=== PATIENT | male | born 1980 | race African-American/Black ===

== ENCOUNTER 2021-01-24 05:33 | Emergency (ER) | payer OTHER ==
[~2021-01-24] VITALS: Ht 203.2 cm; Wt 136.1 kg
--- NOTE | 2021-01-24 05:47 | NUR ---
PT AMBULATED TO ER REQUESTING FOR INSULIN ADMINISTRATION, PT STATES, " I HAVEN'T BEEN ABLE TO REFILL MY RX". ALSO C/O RECTAL BLEEDING. PT A/O X3, NO SOB OR LABORED BREATHING. AFEBRILE. DENIES CP/PRESSURE. CLEAR SPEECH, COMPLETE SENTENCES.
--- NOTE | 2021-01-24 05:49 | NUR ---
Ayaka OLIVARES AT BEDSIDE, MSE IN PROGRESS.
[2021-01-24] MEDS ORDERED: ONDANSETRON 4 MG/2 ML VIAL IV ONE (06:00)
[2021-01-24] MEDS ORDERED: IV NORMAL SALINE 1000 ML BAG IV ONE (06:00)
[2021-01-24 06:05] LABS: HEMATOCRIT 40.7 % (36.7-47.1); MEAN CORPUSCULAR HEMOGLOBIN 25.4 uug (23.8-33.4); MEAN CORPUSCULAR VOLUME 79.4 fL (73.0-96.2); PLATELET COUNT (AUTO) 223 K/uL (152-348)
[2021-01-24] MEDS ORDERED: ONDANSETRON 4 MG/2 ML VIAL ONE (06:11)
[2021-01-24] MEDS ORDERED: INSU100V28 SUBCUT (06:15)
[2021-01-24] MEDS ORDERED: LISI2.5T2 PO (06:15)
[2021-01-24] MEDS ORDERED: NPH,100V2 SUBCUT (06:15)
[2021-01-24 06:19] LABS: *OCCULT BLOOD STOOL POSITIVE (NEGATIVE)
[2021-01-24 06:27] LABS: CREATININE 1.2 mg/dL (0.6-1.3)
[2021-01-24 06:34] LABS: BILIRUBIN,DIRECT 0.1 mg/dL (0.0-0.2); BILIRUBIN,TOTAL 0.2 mg/dL (0.2-1.0); TOTAL PROTEIN, SERUM 7.8 g/dL (6.4-8.2)
--- NOTE | 2021-01-24 07:09 | NUR ---
GAVE REPORT TO Poppy WHEELER (NIKHIL).
[2021-01-24] MEDS ORDERED: HYDR28.316 RC (08:09)
[2021-01-24 08:15] VITALS: BP 130/58
--- NOTE | 2021-01-24 08:17 | NUR ---
Removed IV intact, site benign, bandaged. Gave pt RX and d/c instructions, pt verbalized understanding.
== END 2021-01-24 08:18 | disposition home or self-care (01) ==
LOC: ER 05:45
DX: E11.65 Type 2 diabetes mellitus with hyperglycemia (principal); K92.1 Melena
CPT/HCPCS: 36415; 80048; 80076; 82009; 82270; 85025; 85610; 96361; 96374; 99284; J2405; A4663; J7030

== ENCOUNTER 2021-02-04 | Emergency (ER) | payer OTHER ==
[~2021-02-04] VITALS: Ht 203.2 cm; Wt 136.1 kg
[~2021-02-04] MED LIST: HYDR28.316 RC; INSU100V28 SUBCUT; LISI2.5T14 PO; NPH,100V2 SUBCUT
[2021-02-04 01:26] LABS: CREATININE 1.1 mg/dL (0.6-1.3); POTASSIUM 3.8 mmol/L (3.5-5.1)
[2021-02-04 01:31] LABS: HEMATOCRIT 39.9 % (36.7-47.1); MEAN CORPUSCULAR HEMOGLOBIN 25.7 uug (23.8-33.4); MEAN CORPUSCULAR VOLUME 79.3 fL (73.0-96.2); PLATELET COUNT (AUTO) 227 K/uL (152-348)
[2021-02-04 01:32] LABS: BILIRUBIN,DIRECT 0.1 mg/dL (0.0-0.2); BILIRUBIN,TOTAL 0.2 mg/dL (0.2-1.0); TOTAL PROTEIN, SERUM 7.1 g/dL (6.4-8.2)
--- NOTE | 2021-02-04 04:00 | NUR ---
Patient sleeping with no distress noted.
[2021-02-04] MEDS ORDERED: INSU100V28 SUBCUT (05:09)
[2021-02-04] MEDS ORDERED: NPH,100V2 SUBCUT (05:09)
--- NOTE | 2021-02-04 05:17 | NUR ---
Patient discharged to home in stable condition. Written and verbal after care instructions given. Patient verbalizes understanding of instructions. Stressed follow up or return to ER for worsening s/s.
[2021-02-04 05:18] VITALS: BP 142/81
[2021-02-05] MEDS ORDERED: HUM100IN SQ (02:24)
[2021-02-05] MEDS ORDERED: NITR100C PO (02:24)
== END 2021-02-04 05:20 | disposition home or self-care (01) ==
LOC: ER
DX: R07.9 Chest pain, unspecified (principal); Z82.49 Family history of ischemic heart disease and other diseases of the circulatory system; R94.31 Abnormal electrocardiogram [ECG] [EKG]; E11.65 Type 2 diabetes mellitus with hyperglycemia; Z79.4 Long term (current) use of insulin; J98.11 Atelectasis; I51.7 Cardiomegaly; Z76.0 Encounter for issue of repeat prescription
CPT/HCPCS: 36415; 70030-TC; 71045; 84443; 85025; 93005; A4663

== ENCOUNTER 2021-02-05 00:40 | Emergency (ER) | payer OTHER ==
[~2021-02-05] VITALS: Ht 203.2 cm; Wt 136.1 kg
[~2021-02-05 00:40] MED LIST changes: -LISI2.5T14 PO; +LISI2.5T2 PO
[2021-02-05] MEDS ORDERED: INSULIN NPH 1,000 UNITS/10 ML VIAL SQ ONE ×3 (01:15→02:00)
[2021-02-05] MEDS ORDERED: IV NORMAL SALINE 1000 ML BAG IV ONE (01:15)
[2021-02-05 01:44] LABS: *BILIRUBIN,URIN NEGATIVE (NEGATIVE); *CLARITY,URINE CLEAR (CLEAR); *COLOR,URINE YELLOW (YELLOW); *KETONES,URINE NEGATIVE (NEGATIVE); *UROBILINOGEN,URINE 0.2 E.U./dl (NORMAL); LEUKOCYTE ESTERASE ,URINE TRACE (NEGATIVE); NITRITE, URINE NEGATIVE (NEGATIVE); PH,URINE 5.5 (5.0-8.0)
[2021-02-05 01:52] LABS: CREATININE 1.2 mg/dL (0.6-1.3)
[2021-02-05 01:57] LABS: ETHANOL < 3 MG/DL (0-0)
[2021-02-05 01:59] LABS: *BLOOD, URINE TRACE (NEGATIVE); MEAN CORPUSCULAR HEMOGLOBIN 25.9 uug (23.8-33.4); MEAN CORPUSCULAR VOLUME 80.7 fL (73.0-96.2); PLATELET COUNT (AUTO) 215 K/uL (152-348); UGLUCOSE 3+ (NEGATIVE)
[2021-02-05 02:04] LABS: *AMPHETAMINE, URINE NEGATIVE (NEGATIVE); *CANNABINOID, URINE POSITIVE (NEGATIVE); *COCCAINE, URINE NEGATIVE (NEGATIVE); *OPIATE, URINE NEGATIVE (NEGATIVE); *PHENCYCLIDINE SCREEN,URINE NEGATIVE (NEGATIVE); BILIRUBIN,DIRECT 0.1 mg/dL (0.0-0.2); BILIRUBIN,TOTAL 0.1 mg/dL (0.2-1.0); TOTAL PROTEIN, SERUM 6.8 g/dL (6.4-8.2)
[2021-02-05 02:09] LABS: RBC,URINE 0-3 /HPF (0-3)
[2021-02-05 02:10] LABS: BACTERIA,URINE FEW /HPF (NONE SEEN); SQUAMOUS EPITHELIAL CELL,UR FEW /HPF (NONE SEEN)
[2021-02-05] MEDS ORDERED: CEFTRIAXONE 2 G in IV DEXTROSE 5% 100 ML IV ONE (02:15)
[2021-02-05] MEDS ORDERED: NITR100C PO (02:24)
[2021-02-05] MEDS ORDERED: HUM100IN SQ (02:24)
[2021-02-05] MEDS ORDERED: CEFTRIAXONE 1 G VIAL ONE ×2 (02:30→02:32)
[2021-02-05] MEDS ORDERED: CEFTRIAXONE /D5W 50ML IVPB **ER PYXIS IV ONE (02:30)
[2021-02-05 03:10] VITALS: BP 158/86
--- NOTE | 2021-02-05 03:10 | NUR ---
IV removed. Catheter intact and site benign. Pressure and 4x4 gauze applied to site. No bleeding noted.
== END 2021-02-05 03:11 | disposition home or self-care (01) ==
LOC: ER 00:43
DX: N39.0 Urinary tract infection, site not specified (principal); E66.01 Morbid (severe) obesity due to excess calories; Z68.33 Body mass index [BMI] 33.0-33.9, adult; F15.20 Other stimulant dependence, uncomplicated; E11.65 Type 2 diabetes mellitus with hyperglycemia; Z79.4 Long term (current) use of insulin; E78.5 Hyperlipidemia, unspecified; F17.290 Nicotine dependence, other tobacco product, uncomplicated; R94.31 Abnormal electrocardiogram [ECG] [EKG]
CPT/HCPCS: 36415; 80048; 80076; 80307; 80320; 81001; 82009; 82962 ×2; 83735; 83880; 84100; 84484; 85025; 87086; 93005; 96361; 96365; 96372; 99284; J0696 ×2; J7060; 70030-TC; A4663; G0480; J1815; J7030

== ENCOUNTER 2021-02-11 03:55 | Emergency (ER) | payer OTHER ==
[~2021-02-11] VITALS: Ht 203.2 cm; Wt 158.8 kg
[~2021-02-11 03:55] MED LIST changes: +HUM100IN SQ; +LISI2.5T14 PO; -LISI2.5T2 PO; +NITR100C PO
--- NOTE | 2021-02-11 04:35 | NUR ---
Patient was MSE by Dr Tim in room 05A.
--- NOTE | 2021-02-11 05:00 | NUR ---
Patient refused the VS to be taken. DR Meeta saenz.
--- NOTE | 2021-02-11 05:14 | NUR ---
Patient discharged to home in stable condition. Written and verbal after care instructions given was refused. Patient refused to sign. Stressed follow up or return to ER for worsening s/s. Patient threatening DR. salazar was called.
== END 2021-02-11 05:20 | disposition home or self-care (01) ==
LOC: ER 03:57
DX: E11.9 Type 2 diabetes mellitus without complications (principal); Z79.4 Long term (current) use of insulin
CPT/HCPCS: A4663

== ENCOUNTER 2021-02-20 02:23 | Emergency (ER) | payer OTHER ==
[~2021-02-20] VITALS: Ht 203.2 cm; Wt 158.8 kg
--- NOTE | 2021-02-20 02:51 | NUR ---
Patient was traiged, but after being traiged patient left ER stating "I don't want to be seen by the doctor anymore." Patient was not seen by ERMD.
== END 2021-02-20 03:01 | disposition left against medical advice (07) ==
LOC: ER 02:26
DX: Z53.21 Procedure and treatment not carried out due to patient leaving prior to being seen by health care provider (principal)

== ENCOUNTER 2021-09-17 23:28 | Emergency (ER) | payer OTHER ==
[~2021-09-17] VITALS: Ht 203.2 cm; Wt 181.4 kg
--- NOTE | 2021-09-18 00:10 | NUR ---
Patient ambulated to ER with c/o high blood sugar. Pt reports blood sugar of 600.
[2021-09-18 00:43] LABS: MEAN CORPUSCULAR HEMOGLOBIN 25.1 uug (23.8-33.4); MEAN CORPUSCULAR VOLUME 78.6 fL (73.0-96.2); PLATELET COUNT (AUTO) 202 K/uL (152-348)
[2021-09-18 00:53] LABS: BILIRUBIN,DIRECT 0.1 mg/dL (0.0-0.2); BILIRUBIN,TOTAL 0.4 mg/dL (0.2-1.0); CREATININE 1.1 mg/dL (0.6-1.3); TOTAL PROTEIN, SERUM 6.9 g/dL (6.4-8.2)
[2021-09-18 00:57] LABS: *BILIRUBIN,URIN NEGATIVE (NEGATIVE); *BLOOD, URINE NEGATIVE (NEGATIVE); *CLARITY,URINE CLEAR (CLEAR); *COLOR,URINE YELLOW (YELLOW); *KETONES,URINE NEGATIVE (NEGATIVE); *UROBILINOGEN,URINE 0.2 E.U./dl (NORMAL); LEUKOCYTE ESTERASE ,URINE NEGATIVE (NEGATIVE); NITRITE, URINE NEGATIVE (NEGATIVE); PH,URINE 5.5 (5.0-8.0); UGLUCOSE 3+ (NEGATIVE)
[2021-09-18] MEDS ORDERED: IV NS 1000 ML 1,000 ML IV ONE ×3 (01:15→02:45)
[2021-09-18] MEDS ORDERED: INSULIN REGULAR, HUMAN 300 UNIT/3 ML VIAL IV ONE (01:15)
[2021-09-18] MEDS ORDERED: INSULIN NPH 1,000 UNITS/10 ML VIAL SQ ONE (01:22)
[2021-09-18] MEDS ORDERED: INSULIN REGULAR, HUMAN 300 UNIT/3 ML VIAL ONE (01:26)
--- NOTE | 2021-09-18 02:26 | NUR ---
Dr. Mcdonald on bedside
--- NOTE | 2021-09-18 03:30 | NUR ---
Pt sleeping, arouse to verbal and tactil stimuli. In no apparent distress.
--- NOTE | 2021-09-18 04:33 | NUR ---
Patient discharged to home in stable condition. Written and verbal after care instructions given. Patient verbalizes understanding of instructions. Stressed follow up or return to ER for worsening s/s. Patient ambulated from the ER with steady gait. All belongings with patient.
[2021-09-18 04:34] VITALS: BP 133/73
[2021-09-19] LABS: ABG BASE EXCESS 0.2 mmol/L; ABG HCO3 25.4 mmol/L; ABG PCO2 43.4 mmHg (35.0-45.0); ABG PH 7.386 (7.350-7.450); ABG PO2 64.1 mmHg (75.0-100.0); ABG SITE LEFT RADIAL; ABG TOTAL HEMOGLOBIN 13.8 G/dL (13.5-18.0); COHb 1.4 % (0.5-1.5); MetHb 0.3 % (0.0-1.5); O2Hb 91.8 % (94.0-97.0); VENT MODE ROOM AIR
== END 2021-09-18 04:34 | disposition home or self-care (01) ==
LOC: ER 23:37
DX: E11.65 Type 2 diabetes mellitus with hyperglycemia (principal); E66.01 Morbid (severe) obesity due to excess calories; Z68.41 Body mass index [BMI] 40.0-44.9, adult; Z79.4 Long term (current) use of insulin; F17.210 Nicotine dependence, cigarettes, uncomplicated
CPT/HCPCS: 36415; 36600 ×2; 80048; 80076; 81003; 82009; 82962 ×2; 85025; 93005; 96374; 99285; 99406; J1815; J7040 ×2

== ENCOUNTER 2021-09-19 23:50 | Emergency (ER) | payer SELFPAY ==
[~2021-09-19] VITALS: Ht 203.2 cm; Wt 181.4 kg
[2021-09-20 00:41] LABS: *BILIRUBIN,URIN NEGATIVE (NEGATIVE); *BLOOD, URINE NEGATIVE (NEGATIVE); *CLARITY,URINE CLEAR (CLEAR); *COLOR,URINE YELLOW (YELLOW); *KETONES,URINE NEGATIVE (NEGATIVE); *UROBILINOGEN,URINE 0.2 E.U./dl (NORMAL); LEUKOCYTE ESTERASE ,URINE NEGATIVE (NEGATIVE); NITRITE, URINE NEGATIVE (NEGATIVE); UGLUCOSE 3+ (NEGATIVE)
[2021-09-20] MEDS ORDERED: INSULIN REGULAR, HUMAN 300 UNIT/3 ML VIAL ONE (00:51)
[2021-09-20] MEDS ORDERED: INSULIN REGULAR, HUMAN 300 UNIT/3 ML VIAL IV ONE (01:00)
[2021-09-20 01:57] VITALS: BP 145/88
[2021-09-20] MEDS ORDERED: IV NS 1000 ML 1,000 ML IV ONE (02:00)
== END 2021-09-20 01:59 | disposition home or self-care (01) ==
LOC: ER 23:50
DX: E11.65 Type 2 diabetes mellitus with hyperglycemia (principal); Z79.4 Long term (current) use of insulin; Z79.899 Other long term (current) drug therapy; F17.210 Nicotine dependence, cigarettes, uncomplicated
CPT/HCPCS: J1815; J7040

== ENCOUNTER 2021-09-23 03:43 | Emergency (ER) | payer SELFPAY ==
[~2021-09-23] VITALS: Ht 203.2 cm; Wt 181.4 kg
[2021-09-23] MEDS ORDERED: INSULIN REGULAR, HUMAN 300 UNIT/3 ML VIAL IV ONE (05:00)
[2021-09-23] MEDS ORDERED: IV NS 1000 ML 1,000 ML IV ONE (05:00)
[2021-09-23] MEDS ORDERED: INSULIN REGULAR, HUMAN 300 UNIT/3 ML VIAL ONE (05:23)
--- NOTE | 2021-09-23 05:30 | NUR ---
insulin was given ivp per orders co sign was Gonzalez CHAVES.
[2021-09-23 05:48] LABS: CREATININE 0.9 mg/dL (0.6-1.3); POTASSIUM 3.8 mmol/L (3.5-5.1)
--- NOTE | 2021-09-23 07:20 | NUR ---
Pt eloped, pt stated he has been feeling much better and asked to be discharged several times and can not wait any longer. Pt ambulatory with steady gait and denies any medical complaints at this time, VSS.
[2021-09-23 07:24] LABS: *BILIRUBIN,URIN NEGATIVE (NEGATIVE); *BLOOD, URINE NEGATIVE (NEGATIVE); *CLARITY,URINE CLEAR (CLEAR); *COLOR,URINE YELLOW (YELLOW); *KETONES,URINE NEGATIVE (NEGATIVE); *UROBILINOGEN,URINE 0.2 E.U./dl (NORMAL); LEUKOCYTE ESTERASE ,URINE NEGATIVE (NEGATIVE); NITRITE, URINE NEGATIVE (NEGATIVE); PH,URINE 5.5 (5.0-8.0); UGLUCOSE 2+ (NEGATIVE)
== END 2021-09-23 07:38 | disposition left against medical advice (07) ==
LOC: ER 03:46
DX: E11.65 Type 2 diabetes mellitus with hyperglycemia (principal); Z79.4 Long term (current) use of insulin; F17.200 Nicotine dependence, unspecified, uncomplicated; R03.0 Elevated blood-pressure reading, without diagnosis of hypertension; Z53.20 Procedure and treatment not carried out because of patient's decision for unspecified reasons
CPT/HCPCS: 36415; 80048; 81003; 82962; 96374; 99284; J1815; J7040; A4663

== ENCOUNTER 2021-09-25 00:43 | Emergency (ER) | payer SELFPAY ==
[~2021-09-25] VITALS: Ht 203.2 cm; Wt 181.4 kg
--- NOTE | 2021-09-25 00:50 | NUR ---
Patient walked into ER c/o hyperglycemia 400 [employer]
--- NOTE | 2021-09-25 00:55 | NUR ---
Dr Prado in room for ROSE
[2021-09-25 01:29] LABS: HEMATOCRIT 41.5 % (36.7-47.1); MEAN CORPUSCULAR HEMOGLOBIN 25.4 uug (23.8-33.4); MEAN CORPUSCULAR VOLUME 78.9 fL (73.0-96.2); PLATELET COUNT (AUTO) 201 K/uL (152-348)
[2021-09-25 01:40] LABS: BILIRUBIN,DIRECT 0.1 mg/dL (0.0-0.2); BILIRUBIN,TOTAL 0.4 mg/dL (0.2-1.0); CREATININE 1.2 mg/dL (0.6-1.3); POTASSIUM 3.9 mmol/L (3.5-5.1); TOTAL PROTEIN, SERUM 7.1 g/dL (6.4-8.2)
[2021-09-25] MEDS ORDERED: IV NORMAL SALINE 1000 ML BAG IV ONE ×2 (03:00→04:00)
[2021-09-25] MEDS ORDERED: INSULIN REGULAR, HUMAN 300 UNIT/3 ML VIAL ONE (03:51)
[2021-09-25] MEDS ORDERED: INSULIN REGULAR, HUMAN 300 UNIT/3 ML VIAL IV ONE (04:00)
[2021-09-25 06:00] VITALS: BP 136/62
--- NOTE | 2021-09-25 06:12 | NUR ---
Patient discharged to home in stable condition. Written and verbal after care instructions given. Patient verbalizes understanding of instructions. Stressed follow up or return to ER for worsening s/s. Patient is A/Ox4, no CP, no SOB, no distress noted.
== END 2021-09-25 06:13 | disposition home or self-care (01) ==
LOC: ER 00:46
DX: E11.65 Type 2 diabetes mellitus with hyperglycemia (principal); Z79.4 Long term (current) use of insulin; R94.31 Abnormal electrocardiogram [ECG] [EKG]
CPT/HCPCS: 36415; 71045; 80048; 80076; 82009; 82962; 85025; 93005; 96361; 96374; 99285; J1815; J7040 ×2; A4663

== ENCOUNTER 2021-09-26 02:00 | Emergency (ER) | payer SELFPAY ==
[~2021-09-26] VITALS: Ht 203.2 cm; Wt 181.4 kg
--- NOTE | 2021-09-26 03:12 | NUR ---
Dr ravi at bedside, MSE in progress.
[2021-09-26 04:34] LABS: HEMATOCRIT 40.5 % (36.7-47.1); MEAN CORPUSCULAR HEMOGLOBIN 25.4 uug (23.8-33.4); MEAN CORPUSCULAR VOLUME 78.7 fL (73.0-96.2); PLATELET COUNT (AUTO) 199 K/uL (152-348)
[2021-09-26 05:28] LABS: CREATININE 1.1 mg/dL (0.6-1.3); POTASSIUM 3.9 mmol/L (3.5-5.1)
--- NOTE | 2021-09-26 06:39 | NUR ---
Patient given written and verbal discharge instructions. Patient verbalizes understanding of instructions. Patient is ambulatory with steady gait. Refuses offer of skilled nursing placement. Patient given list of available shelters in surrounding area.
[2021-09-26 06:40] VITALS: BP 131/70
== END 2021-09-26 06:42 | disposition home or self-care (01) ==
LOC: ER 02:07
DX: E11.65 Type 2 diabetes mellitus with hyperglycemia (principal); T38.3X6A Underdosing of insulin and oral hypoglycemic [antidiabetic] drugs, initial encounter; Z91.128 Patient's intentional underdosing of medication regimen for other reason; Z79.899 Other long term (current) drug therapy; Y92.89 Other specified places as the place of occurrence of the external cause
CPT/HCPCS: 36415; 83735; 85025; A4663

== ENCOUNTER 2021-09-29 02:14 | Emergency (ER) | payer SELFPAY ==
[~2021-09-29] VITALS: Ht 203.2 cm; Wt 181.4 kg
--- NOTE | 2021-09-29 02:20 | NUR ---
pt states he is here for high blood sugar.
--- NOTE | 2021-09-29 03:07 | NUR ---
pt sugar by [employer] is 326. I asked the pt what his blood sugar was before he came here he states "I do not know."
--- NOTE | 2021-09-29 03:20 | NUR ---
Dr. Tim in room speaking with the pt.
[2021-09-29 03:58] VITALS: BP 133/70
== END 2021-09-29 03:59 | disposition home or self-care (01) ==
LOC: ER 02:17
DX: E11.65 Type 2 diabetes mellitus with hyperglycemia (principal); Z79.4 Long term (current) use of insulin
CPT/HCPCS: A4663

== ENCOUNTER 2021-10-04 02:46 | Emergency (ER) | payer MEDICAID ==
[~2021-10-04] VITALS: Ht 203.2 cm; Wt 181.4 kg
--- NOTE | 2021-10-04 03:50 | NUR ---
Patient arrived at the Er with c/o of high blood sugar.
--- NOTE | 2021-10-04 03:53 | NUR ---
Dr. Reddy on bedside for MSE.
[2021-10-04 04:58] LABS: CARBON DIOXIDE 26 mmol/L (21-32); CHLORIDE 101 mmol/L (98-107); CREATININE 1.1 mg/dL (0.6-1.3); POTASSIUM 3.9 mmol/L (3.5-5.1); UREA NITROGEN, BLOOD 12 mg/dL (7-18)
[2021-10-04 04:59] LABS: GLUCOSE 405 mg/dL (74-106)
[2021-10-04] MEDS ORDERED: INSULIN REGULAR, HUMAN 300 UNIT/3 ML VIAL ONE (05:12)
[2021-10-04] MEDS ORDERED: HUM10VIA3 SQ (05:15)
[2021-10-04] MEDS ORDERED: INSULIN REGULAR, HUMAN 300 UNIT/3 ML VIAL SQ ONE (05:15)
--- NOTE | 2021-10-04 05:40 | NUR ---
Patient discharged to home in stable condition. Written and verbal after care instructions given. Patient verbalizes understanding of instructions. Stressed follow up or return to ER for worsening s/s. Patient ambulated fr the ER with steady gait. All belongings with patient.
[2021-10-04 05:45] VITALS: BP 139/79
== END 2021-10-04 05:45 | disposition home or self-care (01) ==
LOC: ER 02:46
DX: E11.65 Type 2 diabetes mellitus with hyperglycemia (principal); Z79.4 Long term (current) use of insulin; Z59.00 Homelessness unspecified
CPT/HCPCS: 36415; 80048; 82009; 82962; 96372; 99283; J1815; A4663

== ENCOUNTER 2021-10-07 00:26 | Emergency (ER) | payer SELFPAY ==
[~2021-10-07] VITALS: Ht 203.2 cm; Wt 181.4 kg
[~2021-10-07 00:26] MED LIST changes: +HUM10VIA3 SQ
--- NOTE | 2021-10-07 01:05 | NUR ---
After being triaged, patient was placed back in waiting room due to no beds available in the ER and hallway full of patient.
--- NOTE | 2021-10-07 02:00 | NUR ---
Patient sleeping on a chair in the waiting room with no distress noted.
--- NOTE | 2021-10-07 06:00 | NUR ---
Patient eloped from facility. ER physician notified.
== END 2021-10-07 07:08 | disposition left against medical advice (07) ==
LOC: ER 07:06
DX: Z53.21 Procedure and treatment not carried out due to patient leaving prior to being seen by health care provider (principal)

== ENCOUNTER 2021-10-08 22:40 | Emergency (ER) | payer SELFPAY ==
[~2021-10-08] VITALS: Ht 203.2 cm; Wt 181.4 kg
--- NOTE | 2021-10-09 06:00 | NUR ---
Patient left without being seen by ERMD.
[2021-10-10] MEDS ORDERED: HUM10VIA3 SQ (04:16)
== END 2021-10-09 06:00 | disposition left against medical advice (07) ==
LOC: ER 22:41
DX: Z00.00 Encounter for general adult medical examination without abnormal findings (principal); Z53.21 Procedure and treatment not carried out due to patient leaving prior to being seen by health care provider

== ENCOUNTER 2021-10-10 00:13 | Emergency (ER) | payer MEDICAID ==
[~2021-10-10] VITALS: Ht 203.2 cm; Wt 181.4 kg
--- NOTE | 2021-10-10 02:20 | NUR ---
Patient walked into ER c/o hyperglycemia. Patient is A/Ox4, not in distress
[2021-10-10 03:02] LABS: HEMATOCRIT 40.9 % (36.7-47.1); MEAN CORPUSCULAR HEMOGLOBIN 25.1 uug (23.8-33.4); MEAN CORPUSCULAR VOLUME 79.4 fL (73.0-96.2); PLATELET COUNT (AUTO) 185 K/uL (152-348)
[2021-10-10 03:11] LABS: *BILIRUBIN,URIN NEGATIVE (NEGATIVE); *BLOOD, URINE NEGATIVE (NEGATIVE); *CLARITY,URINE CLEAR (CLEAR); *COLOR,URINE YELLOW (YELLOW); *KETONES,URINE NEGATIVE (NEGATIVE); *UROBILINOGEN,URINE 0.2 E.U./dl (NORMAL); LEUKOCYTE ESTERASE ,URINE NEGATIVE (NEGATIVE); NITRITE, URINE NEGATIVE (NEGATIVE); PH,URINE 5.5 (5.0-8.0); UGLUCOSE 3+ (NEGATIVE)
[2021-10-10 03:21] LABS: CARBON DIOXIDE 27 mmol/L (21-32); CHLORIDE 101 mmol/L (98-107); POTASSIUM 3.9 mmol/L (3.5-5.1); UREA NITROGEN, BLOOD 14 mg/dL (7-18)
[2021-10-10 03:23] LABS: GLUCOSE 413 mg/dL (74-106)
[2021-10-10] MEDS ORDERED: HUM10VIA3 SQ (04:16)
[2021-10-10] MEDS ORDERED: POTASSIUM CHLORIDE 10 MEQ TAB.PRT.SR ONE (04:24)
[2021-10-10] MEDS ORDERED: INSULIN REGULAR, HUMAN 300 UNIT/3 ML VIAL ONE (04:25)
[2021-10-10] MEDS ORDERED: INSULIN REGULAR, HUMAN 300 UNIT/3 ML VIAL SQ ONE (04:30)
[2021-10-10] MEDS ORDERED: POTASSIUM CHLORIDE 20 MEQ TAB.PRT.SR PO ONE (04:30)
--- NOTE | 2021-10-10 04:48 | NUR ---
Patient discharged to home in stable condition. Written and verbal after care instructions given. Patient verbalizes understanding of instructions. Stressed follow up or return to ER for worsening s/s. Patient is a/ox4, not in distress, able to walk with steady gait
[2021-10-10 04:49] VITALS: BP 128/69
== END 2021-10-10 04:50 | disposition home or self-care (01) ==
LOC: ER 00:15
DX: E11.65 Type 2 diabetes mellitus with hyperglycemia (principal); Z91.14 Patient's other noncompliance with medication regimen; F17.210 Nicotine dependence, cigarettes, uncomplicated; Z91.11 Patient's noncompliance with dietary regimen; Z76.0 Encounter for issue of repeat prescription
CPT/HCPCS: 36415; 80048; 81003; 82009; 82962; 85025; 96372; 99283; 99406; J1815; A4663

== ENCOUNTER 2021-10-10 23:25 | Emergency (ER) | payer MEDICAID ==
[~2021-10-10] VITALS: Ht 203.2 cm; Wt 181.4 kg
--- NOTE | 2021-10-10 23:50 | NUR ---
Dr ravi at bedside, MSE in progress.
--- NOTE | 2021-10-11 00:38 | NUR ---
Patient given written and verbal discharge instructions. Patient verbalizes understanding of instructions. Patient is ambulatory with steady gait. Refuses offer of long term placement. Patient given list of available shelters in surrounding area.
[2021-10-11 00:39] VITALS: BP 133/88
== END 2021-10-11 00:40 | disposition home or self-care (01) ==
LOC: ER 23:25
DX: E11.65 Type 2 diabetes mellitus with hyperglycemia (principal); F17.200 Nicotine dependence, unspecified, uncomplicated; Z79.4 Long term (current) use of insulin
CPT/HCPCS: A4663

== ENCOUNTER 2021-10-15 22:49 | Emergency (ER) | payer MEDICAID ==
[~2021-10-15] VITALS: Ht 203.2 cm; Wt 181.4 kg
[2021-10-16] MEDS ORDERED: IV NS 1000 ML 1,000 ML IV ONE (02:30)
[2021-10-16 03:16] LABS: *BILIRUBIN,URIN NEGATIVE (NEGATIVE); *BLOOD, URINE NEGATIVE (NEGATIVE); *CLARITY,URINE CLEAR (CLEAR); *COLOR,URINE YELLOW (YELLOW); *KETONES,URINE NEGATIVE (NEGATIVE); *UROBILINOGEN,URINE 0.2 E.U./dl (NORMAL); LEUKOCYTE ESTERASE ,URINE NEGATIVE (NEGATIVE); NITRITE, URINE NEGATIVE (NEGATIVE); UGLUCOSE 2+ (NEGATIVE)
[2021-10-16 03:25] LABS: CREATININE 1.2 mg/dL (0.6-1.3); POTASSIUM 4.1 mmol/L (3.5-5.1)
[2021-10-16] MEDS ORDERED: INSULIN REGULAR, HUMAN 300 UNIT/3 ML VIAL IV ONE (03:30)
--- NOTE | 2021-10-16 03:30 | NUR ---
Patient walked into ER c/o "hyperglycemia"
[2021-10-16] MEDS ORDERED: INSULIN REGULAR, HUMAN 300 UNIT/3 ML VIAL ONE (03:36)
--- NOTE | 2021-10-16 06:44 | NUR ---
Patient discharged to home in stable condition. Written and verbal after care instructions given. Patient verbalizes understanding of instructions. Stressed follow up or return to ER for worsening s/s. Patient is a/ox4, not in distress
[2021-10-16 06:59] VITALS: BP 138/77
== END 2021-10-16 06:59 | disposition home or self-care (01) ==
LOC: ER 22:50
DX: E11.65 Type 2 diabetes mellitus with hyperglycemia (principal); Z79.4 Long term (current) use of insulin; F17.210 Nicotine dependence, cigarettes, uncomplicated; Z91.14 Patient's other noncompliance with medication regimen
CPT/HCPCS: 36415; 80048; 81003; 82962; 96361; 96374; 99284; 99406; J1815; J7040; A4663

== ENCOUNTER 2021-10-19 23:56 | Emergency (ER) | payer MEDICAID ==
[~2021-10-19] VITALS: Ht 203.2 cm; Wt 181.4 kg
--- NOTE | 2021-10-20 00:05 | NUR ---
Dr. Calderon at bedside for MSE.
--- NOTE | 2021-10-20 00:40 | NUR ---
Patient discharged to home in stable condition. Written and verbal after care instructions given. Patient verbalizes understanding of instructions. Stressed follow up or return to ER for worsening s/s. Patient out of ER with steady gait, no acute signs of distress, VSS, all belongings taken.
[2021-10-20 00:41] VITALS: BP 134/78
== END 2021-10-20 00:41 | disposition home or self-care (01) ==
LOC: ER 23:58
DX: E11.65 Type 2 diabetes mellitus with hyperglycemia (principal); Z79.4 Long term (current) use of insulin; F17.200 Nicotine dependence, unspecified, uncomplicated
CPT/HCPCS: A4663

== ENCOUNTER 2021-10-26 05:02 | Emergency (ER) | payer MEDICAID ==
[~2021-10-26] VITALS: Ht 203.2 cm; Wt 181.4 kg
--- NOTE | 2021-10-26 05:07 | NUR ---
Dr. Bustamante at bedside for MSE.
[2021-10-26 05:55] LABS: CREATININE 1.1 mg/dL (0.6-1.3); POTASSIUM 3.9 mmol/L (3.5-5.1)
[2021-10-26 06:08] VITALS: BP 145/66
== END 2021-10-26 06:08 | disposition home or self-care (01) ==
LOC: ER 05:04
DX: E11.65 Type 2 diabetes mellitus with hyperglycemia (principal); Z79.4 Long term (current) use of insulin; Z59.00 Homelessness unspecified
CPT/HCPCS: 36415; A4663

== ENCOUNTER 2021-10-28 01:10 | Emergency (ER) | payer SELFPAY ==
[~2021-10-28] VITALS: Ht 203.2 cm; Wt 181.4 kg
--- NOTE | 2021-10-28 06:16 | NUR ---
Patient left without bring seen by ERMD.
== END 2021-10-28 06:18 | disposition left against medical advice (07) ==
LOC: ER 01:11
DX: Z53.21 Procedure and treatment not carried out due to patient leaving prior to being seen by health care provider (principal)

== ENCOUNTER 2021-11-01 23:49 | Emergency (ER) | payer OTHER ==
[~2021-11-01] VITALS: Ht 203.2 cm; Wt 181.4 kg
--- NOTE | 2021-11-02 00:18 | NUR ---
pt in room 3, pt states his blood sugar is high, he did not check it. I checked his blood sugar accu check it is [address] Tim.
[2021-11-02 00:34] LABS: HEMATOCRIT 40.3 % (36.7-47.1); MEAN CORPUSCULAR HEMOGLOBIN 25.5 uug (23.8-33.4); PLATELET COUNT (AUTO) 210 K/uL (152-348)
[2021-11-02 00:35] LABS: CREATININE 0.9 mg/dL (0.6-1.3); POTASSIUM 3.7 mmol/L (3.5-5.1)
--- NOTE | 2021-11-02 00:54 | NUR ---
security called to assist pt with discharge as pt is stalling to leave the hospital. He is cleaning his shoes and looking around the room not wanting to leave.
[2021-11-02 00:55] VITALS: BP 125/71
== END 2021-11-02 00:55 | disposition home or self-care (01) ==
LOC: ER 11-02 00:08
DX: E11.65 Type 2 diabetes mellitus with hyperglycemia (principal); Z79.4 Long term (current) use of insulin; Z91.14 Patient's other noncompliance with medication regimen; Z91.11 Patient's noncompliance with dietary regimen
CPT/HCPCS: 36415; 85025; A4663

== ENCOUNTER 2021-11-05 01:51 | Emergency (ER) | payer OTHER ==
[~2021-11-05] VITALS: Ht 203.2 cm; Wt 181.4 kg
--- NOTE | 2021-11-05 02:24 | NUR ---
pt in room 4a states he has high blood sugar. accu check was checked by Jeromy TEJEDA it was 368 dr. Tim made aware.
--- NOTE | 2021-11-05 02:32 | NUR ---
Patient discharged to home in stable condition. Written and verbal after care instructions given. Patient verbalizes understanding of instructions. Stressed follow up or return to ER for worsening s/s. pt refused to sign d/c instructions. pt is trying to use the hospital chemical wipes to clean his shoes. I asked him to stop not to use our cleaning wipes. I called security to escort the pt out of the er.
[2021-11-05 02:38] VITALS: BP 125/75
== END 2021-11-05 02:39 | disposition home or self-care (01) ==
LOC: ER 01:55
DX: E11.9 Type 2 diabetes mellitus without complications (principal); F17.200 Nicotine dependence, unspecified, uncomplicated
CPT/HCPCS: A4663

== ENCOUNTER 2021-11-06 00:13 | Emergency (ER) | payer OTHER ==
[~2021-11-06] VITALS: Ht 203.2 cm; Wt 181.4 kg
--- NOTE | 2021-11-06 02:00 | NUR ---
Patient given written and verbal discharge instructions. Patient verbalizes understanding of instructions. Patient is ambulatory with steady gait.
[2021-11-06 04:31] VITALS: BP 105/78
== END 2021-11-06 04:31 | disposition home or self-care (01) ==
LOC: ER 00:15
DX: E11.65 Type 2 diabetes mellitus with hyperglycemia (principal); Z79.4 Long term (current) use of insulin; Z91.19 Patient's noncompliance with other medical treatment and regimen; E66.01 Morbid (severe) obesity due to excess calories; Z68.41 Body mass index [BMI] 40.0-44.9, adult
CPT/HCPCS: A4663

== ENCOUNTER 2021-11-10 04:52 | Emergency (ER) | payer OTHER ==
[~2021-11-10] VITALS: Ht 203.2 cm; Wt 181.4 kg
--- NOTE | 2021-11-10 07:34 | NUR ---
PT LEFT WITHOUT INSTRUCTIONS - HAS BEEN REPORTED TO COME HERE OFTEN FOR NIGHT INTERMEDIATE AND LEAVES THE NEXT DAY. SOCIAL WORK INTERVENTION RENDERED IN THE PAST; CURRENTLY, PT IS NOT INTERESTED.
[2021-11-10 07:37] VITALS: BP 115/80
== END 2021-11-10 07:41 | disposition home or self-care (01) ==
LOC: ER 04:54
DX: E11.65 Type 2 diabetes mellitus with hyperglycemia (principal); Z79.4 Long term (current) use of insulin; Z59.00 Homelessness unspecified; F17.200 Nicotine dependence, unspecified, uncomplicated
CPT/HCPCS: A4663

== ENCOUNTER 2021-11-11 05:00 | Emergency (ER) | payer OTHER ==
[~2021-11-11] VITALS: Ht 203.2 cm; Wt 181.4 kg
--- NOTE | 2021-11-11 05:50 | NUR ---
After being triaged, patient left stating "I ok now, I don't want to be seen anymore."
== END 2021-11-11 05:52 | disposition left against medical advice (07) ==
LOC: ER 05:02
DX: Z53.21 Procedure and treatment not carried out due to patient leaving prior to being seen by health care provider (principal)

== ENCOUNTER 2021-11-13 01:25 | Emergency (ER) | payer OTHER ==
[~2021-11-13] VITALS: Ht 203.2 cm; Wt 181.4 kg
[2021-11-13 02:35] VITALS: BP 132/72
--- NOTE | 2021-11-13 02:35 | NUR ---
Patient discharged to home in stable condition. Written and verbal after care instructions given. Patient verbalizes understanding of instructions. Stressed follow up or return to ER for worsening s/s. pt ambulated with steady gait. denies pain. no SOB. no chest pain. AOx4
== END 2021-11-13 02:36 | disposition home or self-care (01) ==
LOC: ER 01:27
DX: E11.9 Type 2 diabetes mellitus without complications (principal); Z91.11 Patient's noncompliance with dietary regimen; Z79.4 Long term (current) use of insulin; E66.01 Morbid (severe) obesity due to excess calories; Z68.41 Body mass index [BMI] 40.0-44.9, adult
CPT/HCPCS: A4663

== ENCOUNTER 2021-11-16 22:56 | Emergency (ER) | payer OTHER ==
[~2021-11-16] VITALS: Ht 203.2 cm; Wt 181.4 kg
--- NOTE | 2021-11-16 23:20 | NUR ---
Dr. Beckett at bedside for MSE.
--- NOTE | 2021-11-17 06:14 | NUR ---
Patient given written and verbal discharge instructions. Patient verbalizes understanding of instructions. Patient is ambulatory with steady gait. Refuses offer of senior living placement. Patient given list of available shelters in surrounding area. Pt out of ER with steady gait, no acute signs of distress, VSS, all belongings taken, refuses all other services at this time.
[2021-11-17 06:16] VITALS: BP 140/72
== END 2021-11-17 06:16 | disposition home or self-care (01) ==
LOC: ER 22:56
DX: E11.65 Type 2 diabetes mellitus with hyperglycemia (principal); Z79.4 Long term (current) use of insulin; Z59.00 Homelessness unspecified
CPT/HCPCS: A4663

== ENCOUNTER 2022-03-20 22:52 | Emergency (ER) | payer OTHER ==
[~2022-03-20] VITALS: Ht 203.2 cm; Wt 181.4 kg
[2022-03-20] MEDS ORDERED: INSULIN REGULAR, HUMAN 300 UNIT/3 ML VIAL SQ ONE (23:30)
--- NOTE | 2022-03-20 23:30 | NUR ---
Seen and examined by Dr. Reddy, pt blood sugar noted 521
[2022-03-20] MEDS ORDERED: INSULIN REGULAR, HUMAN 300 UNIT/3 ML VIAL ONE (23:35)
[2022-03-20 23:44] LABS: HEMATOCRIT 37.7 % (36.7-47.1); MEAN CORPUSCULAR HEMOGLOBIN 25.5 uug (23.8-33.4); MEAN CORPUSCULAR VOLUME 81.3 fL (73.0-96.2); PLATELET COUNT (AUTO) 226 K/uL (152-348)
[2022-03-21] LABS: CARBON DIOXIDE 26 mmol/L (21-32); CHLORIDE 101 mmol/L (98-107); CREATININE 1.3 mg/dL (0.6-1.3); POTASSIUM 4.1 mmol/L (3.5-5.1); UREA NITROGEN, BLOOD 16 mg/dL (7-18)
[2022-03-21 00:08] LABS: GLUCOSE 525 mg/dL (74-106)
[2022-03-21] MEDS ORDERED: INSULIN REGULAR, HUMAN 300 UNIT/3 ML VIAL IV ONE (01:30)
[2022-03-21] MEDS ORDERED: INSULIN REGULAR, HUMAN 300 UNIT/3 ML VIAL SQ ONE ×2 (02:00→02:45)
--- NOTE | 2022-03-21 02:31 | NUR ---
Pt. in bed asleep at this time
--- NOTE | 2022-03-21 02:34 | NUR ---
blood sugar checked 414 noted, informed Dr. Reddy.
[2022-03-21 03:27] VITALS: BP 130/80
--- NOTE | 2022-03-21 03:31 | NUR ---
pt. denies being homeless
[2022-03-22] MEDS ORDERED: METF-441 PO (23:25)
== END 2022-03-21 03:27 | disposition home or self-care (01) ==
LOC: ER 22:52
DX: E11.65 Type 2 diabetes mellitus with hyperglycemia (principal); Z79.4 Long term (current) use of insulin; Z59.00 Homelessness unspecified; F17.210 Nicotine dependence, cigarettes, uncomplicated; R03.0 Elevated blood-pressure reading, without diagnosis of hypertension
CPT/HCPCS: 99284; 99406; 80048; 82009; 82962 ×5; 85025; 36415; 96372 ×2; 96374; J1815; A4663

== ENCOUNTER 2022-03-22 22:25 | Emergency (ER) | payer OTHER ==
[~2022-03-22] VITALS: Ht 208.3 cm; Wt 181.4 kg
[2022-03-22] MEDS ORDERED: METFORMIN HCL 850 MG TABLET PO ONE (23:15)
[2022-03-22] MEDS ORDERED: METFORMIN HCL 850 MG TABLET ONE (23:18)
[2022-03-22] MEDS ORDERED: METF-441 PO (23:25)
--- NOTE | 2022-03-22 23:31 | NUR ---
Patient given written and verbal discharge instructions. Patient verbalizes understanding of instructions. Patient is ambulatory with steady gait. Refuses offer of nursing home placement. Patient given list of available shelters in surrounding area.
[2022-03-22 23:32] VITALS: BP 129/53
== END 2022-03-22 23:32 | disposition home or self-care (01) ==
LOC: ER 22:28
DX: E11.65 Type 2 diabetes mellitus with hyperglycemia (principal); Z79.4 Long term (current) use of insulin; Z79.84 Long term (current) use of oral hypoglycemic drugs; E66.01 Morbid (severe) obesity due to excess calories; Z68.41 Body mass index [BMI] 40.0-44.9, adult; Z59.00 Homelessness unspecified; Z91.110 Patient's noncompliance with dietary regimen due to financial hardship
CPT/HCPCS: A4663

== ENCOUNTER 2022-03-25 22:58 | Emergency (ER) | payer OTHER ==
[~2022-03-25] VITALS: Ht 208.3 cm; Wt 181.4 kg
[~2022-03-25 22:58] MED LIST changes: +METF-441 PO
[2022-03-26 01:05] LABS: CARBON DIOXIDE 29 mmol/L (21-32); CHLORIDE 102 mmol/L (98-107); CREATININE 1.1 mg/dL (0.6-1.3); POTASSIUM 4.1 mmol/L (3.5-5.1); UREA NITROGEN, BLOOD 13 mg/dL (7-18)
[2022-03-26 01:10] LABS: HEMATOCRIT 40.7 % (36.7-47.1); MEAN CORPUSCULAR HEMOGLOBIN 26.5 uug (23.8-33.4); MEAN CORPUSCULAR VOLUME 80.7 fL (73.0-96.2); PLATELET COUNT (AUTO) 220 K/uL (152-348)
[2022-03-26 01:13] LABS: GLUCOSE 347 mg/dL (74-106)
[2022-03-26] MEDS ORDERED: INSULIN REGULAR, HUMAN 300 UNIT/3 ML VIAL SQ ONE ×2 (01:30→01:45)
[2022-03-26] MEDS ORDERED: INSULIN NPH 1,000 UNITS/10 ML VIAL SQ ONE (01:36)
[2022-03-26] MEDS ORDERED: INSULIN REGULAR, HUMAN 300 UNIT/3 ML VIAL ONE (01:40)
[2022-03-26 03:44] VITALS: BP 128/74
== END 2022-03-26 03:44 | disposition home or self-care (01) ==
LOC: ER 22:58
DX: E10.65 Type 1 diabetes mellitus with hyperglycemia (principal); Z79.4 Long term (current) use of insulin; Z79.84 Long term (current) use of oral hypoglycemic drugs; F17.210 Nicotine dependence, cigarettes, uncomplicated; Z59.00 Homelessness unspecified
CPT/HCPCS: 99283; 80048; 82009; 82962 ×2; 85025; 36415; 96372; J1815

== ENCOUNTER 2022-03-26 18:48 | Emergency (ER) | payer OTHER ==
[~2022-03-26] VITALS: Ht 208.3 cm; Wt 181.4 kg
--- NOTE | 2022-03-27 04:26 | NUR ---
Pt. seeing and being examined by Dr. Tim.
[2022-03-27 04:37] VITALS: BP 122/80
== END 2022-03-27 04:45 | disposition home or self-care (01) ==
LOC: ER 18:52
DX: E11.65 Type 2 diabetes mellitus with hyperglycemia (principal); F17.200 Nicotine dependence, unspecified, uncomplicated; Z79.4 Long term (current) use of insulin; Z79.84 Long term (current) use of oral hypoglycemic drugs; Z91.119 Patient's noncompliance with dietary regimen due to unspecified reason
CPT/HCPCS: A4663

== ENCOUNTER 2022-03-28 21:09 | Emergency (ER) | payer OTHER ==
--- NOTE | 2022-03-29 03:30 | NUR ---
Pt not in waiting room.
== END 2022-03-29 05:17 | disposition left against medical advice (07) ==
LOC: ER 21:09
DX: Z53.21 Procedure and treatment not carried out due to patient leaving prior to being seen by health care provider (principal)

== ENCOUNTER 2022-03-29 23:05 | Emergency (ER) | payer OTHER ==
[~2022-03-29] VITALS: Ht 203.2 cm; Wt 181.4 kg
[2022-03-29] MEDS ORDERED: IV NS 1000 ML 1,000 ML IV ONE ×2 (23:45)
[2022-03-30 00:36] LABS: HEMATOCRIT 38.8 % (36.7-47.1); MEAN CORPUSCULAR HEMOGLOBIN 26.1 uug (23.8-33.4); MEAN CORPUSCULAR VOLUME 81.5 fL (73.0-96.2); PLATELET COUNT (AUTO) 191 K/uL (152-348)
[2022-03-30 00:51] LABS: CREATININE 1.2 mg/dL (0.6-1.3); MAGNESIUM 2.1 mg/dL (1.8-2.4); PHOSPHOROUS 4.3 mg/dL (2.5-4.9)
[2022-03-30 02:02] VITALS: BP 145/67
== END 2022-03-30 02:39 | disposition home or self-care (01) ==
LOC: ER 23:11
DX: E11.65 Type 2 diabetes mellitus with hyperglycemia (principal); Z79.4 Long term (current) use of insulin; Z79.84 Long term (current) use of oral hypoglycemic drugs; Z59.00 Homelessness unspecified; Z91.119 Patient's noncompliance with dietary regimen due to unspecified reason; Z91.14 Patient's other noncompliance with medication regimen
CPT/HCPCS: 99284; 82962; 85025; 36415 ×2; 80048; 83735; 84100; J7040 ×2

== ENCOUNTER 2022-04-01 22:44 | Emergency (ER) | payer OTHER ==
[~2022-04-01] VITALS: Ht 208.3 cm; Wt 181.4 kg
== END 2022-04-02 01:14 | disposition home or self-care (01) ==
LOC: ER 22:46
DX: E11.65 Type 2 diabetes mellitus with hyperglycemia (principal); Z79.4 Long term (current) use of insulin; Z79.84 Long term (current) use of oral hypoglycemic drugs; Z59.00 Homelessness unspecified; Z91.119 Patient's noncompliance with dietary regimen due to unspecified reason; Z91.14 Patient's other noncompliance with medication regimen
CPT/HCPCS: A4663

== ENCOUNTER 2022-04-04 00:05 | Emergency (ER) | payer OTHER ==
[~2022-04-04] VITALS: Ht 203.2 cm; Wt 181.4 kg
--- NOTE | 2022-04-04 00:47 | NUR ---
PT. EVALUATED. NO C/O PAIN/DISCOMFORT. CONTROLS PROJECT ENGINEER IN TO DRAW ORDERED LABS. ACCU CHECK AT 466MG/DL MD AWARE. WILL MONITOR.
[2022-04-04 00:58] LABS: HEMATOCRIT 39.9 % (36.7-47.1); MEAN CORPUSCULAR HEMOGLOBIN 26.5 uug (23.8-33.4); MEAN CORPUSCULAR VOLUME 81.3 fL (73.0-96.2); PLATELET COUNT (AUTO) 219 K/uL (152-348)
[2022-04-04 01:00] LABS: CARBON DIOXIDE 26 mmol/L (21-32); CHLORIDE 97 mmol/L (98-107); CREATININE 1.4 mg/dL (0.6-1.3); POTASSIUM 3.8 mmol/L (3.5-5.1); UREA NITROGEN, BLOOD 14 mg/dL (7-18)
[2022-04-04 01:02] LABS: GLUCOSE 494 mg/dL (74-106)
[2022-04-04] MEDS ORDERED: INSULIN REGULAR, HUMAN 300 UNIT/3 ML VIAL ONE (01:23)
[2022-04-04] MEDS ORDERED: INSULIN REGULAR, HUMAN 300 UNIT/3 ML VIAL SQ ONE (01:30)
--- NOTE | 2022-04-04 01:40 | NUR ---
Pt. given 20 units insulin as ordered by MD. Attempts to find out pt. hx as far as hyperglycemic maintenance futile. Pt. states he is traveling and has no insulin here in [place]. Says he cant afford to pay for insulineven if MD prescribes. Pt. very groggy and answers questions very slowly. No order to re check glucose level post insulin.
[2022-04-04 02:21] VITALS: BP 140/85
== END 2022-04-04 02:22 | disposition home or self-care (01) ==
LOC: ER 00:05
DX: E11.65 Type 2 diabetes mellitus with hyperglycemia (principal); Z79.4 Long term (current) use of insulin; F17.210 Nicotine dependence, cigarettes, uncomplicated; Z59.02 Unsheltered homelessness
CPT/HCPCS: 99283; 99406; 80048; 82009; 82962; 85025; 36415; 96372; J1815; A4663

== ENCOUNTER 2022-04-05 23:20 | Emergency (ER) | payer OTHER ==
[~2022-04-05] VITALS: Ht 208.3 cm; Wt 181.4 kg
--- NOTE | 2022-04-06 05:14 | NUR ---
Patient eloped from facility. ER physician notified.
== END 2022-04-06 05:15 | disposition left against medical advice (07) ==
LOC: ER 23:29
DX: E11.65 Type 2 diabetes mellitus with hyperglycemia (principal); Z53.20 Procedure and treatment not carried out because of patient's decision for unspecified reasons; Z59.00 Homelessness unspecified
CPT/HCPCS: A4663

== ENCOUNTER 2022-04-06 21:14 | Emergency (ER) | payer OTHER ==
[~2022-04-06] VITALS: Ht 208.3 cm; Wt 181.4 kg
[2022-04-07] MEDS ORDERED: INSULIN REGULAR, HUMAN 300 UNIT/3 ML VIAL SQ ONE (01:45)
[2022-04-07] MEDS ORDERED: INSULIN REGULAR, HUMAN 300 UNIT/3 ML VIAL ONE (01:49)
[2022-04-07 02:10] LABS: CARBON DIOXIDE 28 mmol/L (21-32); CHLORIDE 97 mmol/L (98-107); CREATININE 1.1 mg/dL (0.6-1.3); POTASSIUM 3.9 mmol/L (3.5-5.1); UREA NITROGEN, BLOOD 16 mg/dL (7-18)
[2022-04-07 02:20] LABS: GLUCOSE 405 mg/dL (74-106)
[2022-04-07] MEDS ORDERED: HUM INSULIN NPH/REG INSULIN HM 70/30 1000 UNITS/10 ML VIAL SQ ONE (02:48)
[2022-04-07 02:57] VITALS: BP 145/84
== END 2022-04-07 03:01 | disposition home or self-care (01) ==
LOC: ER 21:15
DX: E11.65 Type 2 diabetes mellitus with hyperglycemia (principal); Z79.4 Long term (current) use of insulin; F17.210 Nicotine dependence, cigarettes, uncomplicated; Z59.02 Unsheltered homelessness; Z79.84 Long term (current) use of oral hypoglycemic drugs
CPT/HCPCS: 99283; 80048; 82009; 82962; 36415; 96372; J1815 ×2

== ENCOUNTER 2022-04-07 21:18 | Emergency (ER) | payer OTHER ==
[~2022-04-07] VITALS: Ht 208.3 cm; Wt 181.4 kg
[2022-04-07] MEDS ORDERED: IV NS 1000 ML 1,000 ML IV ONE (23:00)
[2022-04-07] MEDS ORDERED: MAGNESIUM SULFATE/D5W 200 ML ONE (23:11)
[2022-04-07 23:17] LABS: HEMATOCRIT 39.1 % (36.7-47.1); MEAN CORPUSCULAR VOLUME 80.9 fL (73.0-96.2); PLATELET COUNT (AUTO) 197 K/uL (152-348)
[2022-04-07] MEDS: MAGNESIUM SULFATE/D5W 100 ML IV SCH (23:18)
[2022-04-07 23:29] LABS: BILIRUBIN,DIRECT 0.1 mg/dL (0.0-0.2); BILIRUBIN,TOTAL 0.3 mg/dL (0.2-1.0); CREATININE 1.4 mg/dL (0.6-1.3); POTASSIUM 3.6 mmol/L (3.5-5.1); TOTAL PROTEIN, SERUM 6.8 g/dL (6.4-8.2)
[2022-04-08] MEDS ORDERED: INSULIN REGULAR, HUMAN 300 UNIT/3 ML VIAL IV ONE
[2022-04-08] MEDS: MAGNESIUM SULFATE/D5W 100 ML IV SCH (00:10)
[2022-04-08] MEDS ORDERED: INSULIN REGULAR, HUMAN 300 UNIT/3 ML VIAL ONE (00:49)
[2022-04-08 01:45] LABS: *BILIRUBIN,URIN NEGATIVE (NEGATIVE); *BLOOD, URINE NEGATIVE (NEGATIVE); *CLARITY,URINE CLEAR (CLEAR); *COLOR,URINE LIGHT YELLOW (YELLOW); *KETONES,URINE NEGATIVE (NEGATIVE); *UROBILINOGEN,URINE 0.2 E.U./dl (NORMAL); LEUKOCYTE ESTERASE ,URINE NEGATIVE (NEGATIVE); NITRITE, URINE NEGATIVE (NEGATIVE); PH,URINE 5.5 (5.0-8.0)
[2022-04-08 02:05] LABS: UGLUCOSE 3+ (NEGATIVE)
[2022-04-08 02:48] LABS: RBC,URINE 0-3 /HPF (0-3); WBC,URINE NONE SEEN /HPF (0-3)
[2022-04-08 02:49] LABS: BACTERIA,URINE NONE SEEN /HPF (NONE SEEN); SQUAMOUS EPITHELIAL CELL,UR FEW /HPF (NONE SEEN)
--- NOTE | 2022-04-08 05:50 | NUR ---
IV removed. Catheter intact and site benign. Pressure and 4x4 gauze applied to site. No bleeding noted.
--- NOTE | 2022-04-08 06:07 | NUR ---
Patient discharged to home in stable condition. Written and verbal after care instructions given. Patient verbalizes understanding of instructions. Stressed follow up or return to ER for worsening s/s. Patient is a/ox4, NAD noted. Patient is able to walk with steady gait
[2022-04-08 06:12] VITALS: BP 145/68
== END 2022-04-08 06:13 | disposition home or self-care (01) ==
LOC: ER 21:18
DX: E11.65 Type 2 diabetes mellitus with hyperglycemia (principal); Z79.4 Long term (current) use of insulin; F17.210 Nicotine dependence, cigarettes, uncomplicated; Z59.02 Unsheltered homelessness
CPT/HCPCS: 99284; 96365; 99406; 80076; 80048; 82009; 82550; 85025; 36415; 96366; 96375; 81001; 82962; J3475; J1815; J7040; A4663

== ENCOUNTER 2022-04-10 20:32 | Emergency (ER) | payer OTHER ==
[~2022-04-10] VITALS: Ht 208.3 cm; Wt 181.4 kg
--- NOTE | 2022-04-10 20:53 | NUR ---
After being triaged, patient was placed in hallway due to no beds avialable in the ER.
[2022-04-10 21:15] LABS: CARBON DIOXIDE 31 mmol/L (21-32); CHLORIDE 98 mmol/L (98-107); CREATININE 1.3 mg/dL (0.6-1.3); POTASSIUM 3.7 mmol/L (3.5-5.1); UREA NITROGEN, BLOOD 15 mg/dL (7-18)
[2022-04-10 21:22] LABS: GLUCOSE 519 mg/dL (74-106)
[2022-04-10] MEDS ORDERED: INSULIN REGULAR, HUMAN 300 UNIT/3 ML VIAL ONE (21:28)
[2022-04-10] MEDS ORDERED: INSULIN REGULAR, HUMAN 300 UNIT/3 ML VIAL SQ ONE (21:30)
[2022-04-10 21:34] VITALS: BP 145/87
== END 2022-04-10 21:34 | disposition home or self-care (01) ==
LOC: ER 20:35
DX: E11.65 Type 2 diabetes mellitus with hyperglycemia (principal); Z79.4 Long term (current) use of insulin; Z59.00 Homelessness unspecified; F17.210 Nicotine dependence, cigarettes, uncomplicated
CPT/HCPCS: 99283; 99406; 80048; 82009; 36415; 96372; J1815; A4663

== ENCOUNTER 2022-04-13 22:14 | Emergency (ER) | payer OTHER ==
[~2022-04-13] VITALS: Ht 208.3 cm; Wt 181.4 kg
[2022-04-14 01:31] LABS: HEMATOCRIT 41.2 % (36.7-47.1); MEAN CORPUSCULAR HEMOGLOBIN 27.5 uug (23.8-33.4); MEAN CORPUSCULAR VOLUME 81.5 fL (73.0-96.2); PLATELET COUNT (AUTO) 225 K/uL (152-348)
[2022-04-14 01:42] LABS: CARBON DIOXIDE 28 mmol/L (21-32); CHLORIDE 98 mmol/L (98-107); CREATININE 1.1 mg/dL (0.6-1.3); POTASSIUM 3.8 mmol/L (3.5-5.1); UREA NITROGEN, BLOOD 13 mg/dL (7-18)
[2022-04-14 01:48] LABS: GLUCOSE 461 mg/dL (74-106)
--- NOTE | 2022-04-14 04:17 | NUR ---
Dr Mcdonald at bedside MSE in progress
[2022-04-14 04:28] LABS: *BILIRUBIN,URIN NEGATIVE (NEGATIVE); *BLOOD, URINE NEGATIVE (NEGATIVE); *CLARITY,URINE CLEAR (CLEAR); *KETONES,URINE 1+ (NEGATIVE); *UROBILINOGEN,URINE 0.2 E.U./dl (NORMAL); LEUKOCYTE ESTERASE ,URINE NEGATIVE (NEGATIVE); NITRITE, URINE NEGATIVE (NEGATIVE); UGLUCOSE 3+ (NEGATIVE)
[2022-04-14 04:29] LABS: *COLOR,URINE YELLOW (YELLOW)
[2022-04-14] MEDS ORDERED: INSULIN REGULAR, HUMAN 300 UNIT/3 ML VIAL IV ONE (04:30)
[2022-04-14] MEDS ORDERED: IV NS 1000 ML 1,000 ML IV ONE (04:30)
[2022-04-14] MEDS ORDERED: INSULIN REGULAR, HUMAN 300 UNIT/3 ML VIAL ONE (04:35)
--- NOTE | 2022-04-14 04:43 | NUR ---
gave all due meds as ordered, SL on L AC 20G noted.
[2022-04-14 06:48] VITALS: BP 130/71
[2022-04-15] MEDS ORDERED: CALC-903 PO (05:41)
== END 2022-04-14 06:48 | disposition home or self-care (01) ==
LOC: ER 22:20
DX: E11.649 Type 2 diabetes mellitus with hypoglycemia without coma (principal); Z79.4 Long term (current) use of insulin; Z91.14 Patient's other noncompliance with medication regimen; F17.210 Nicotine dependence, cigarettes, uncomplicated; Z59.00 Homelessness unspecified
CPT/HCPCS: 99284; 96374; 96361; 99406; 80048; 81003; 82009; 85025; 36415; J1815; J7040

== ENCOUNTER 2022-04-15 00:56 | Emergency (ER) | payer OTHER ==
[~2022-04-15] VITALS: Ht 208.3 cm; Wt 181.4 kg
--- NOTE | 2022-04-15 01:45 | NUR ---
Patient's accucheck 592. notified
[2022-04-15] MEDS ORDERED: IV NS 1000 ML 1,000 ML IV ONE (03:00)
--- NOTE | 2022-04-15 03:00 | NUR ---
DR PUTNAM AT BEDSIDE MSE IN PROGRESS.
[2022-04-15 03:26] LABS: HEMATOCRIT 43.2 % (36.7-47.1); MEAN CORPUSCULAR HEMOGLOBIN 29.5 uug (23.8-33.4); MEAN CORPUSCULAR VOLUME 82.3 fL (73.0-96.2); PLATELET COUNT (AUTO) 238 K/uL (152-348)
[2022-04-15 03:41] LABS: CREATININE 1.2 mg/dL (0.6-1.3); POTASSIUM 4.4 mmol/L (3.5-5.1)
[2022-04-15] MEDS ORDERED: INSULIN REGULAR, HUMAN 300 UNIT/3 ML VIAL IV ONE (04:30)
[2022-04-15] MEDS ORDERED: INSULIN REGULAR, HUMAN 300 UNIT/3 ML VIAL ONE (04:32)
[2022-04-15 04:38] LABS: *BILIRUBIN,URIN NEGATIVE (NEGATIVE); *BLOOD, URINE NEGATIVE (NEGATIVE); *CLARITY,URINE CLEAR (CLEAR); *COLOR,URINE YELLOW (YELLOW); *KETONES,URINE NEGATIVE (NEGATIVE); *UROBILINOGEN,URINE 0.2 E.U./dl (NORMAL); LEUKOCYTE ESTERASE ,URINE NEGATIVE (NEGATIVE); NITRITE, URINE NEGATIVE (NEGATIVE); PH,URINE 5.5 (5.0-8.0)
[2022-04-15 04:42] LABS: UGLUCOSE 2+ (NEGATIVE)
[2022-04-15] MEDS ORDERED: CALCIUM CARBONATE 500 MG TAB.CHEW ONE (05:06)
[2022-04-15] MEDS ORDERED: CALC-903 PO (05:41)
[2022-04-15 05:55] VITALS: BP 128/70
[2022-04-15] MEDS ORDERED: CALCIUM CARBONATE 600 MG TABLET PO ONE (09:00)
== END 2022-04-15 05:55 | disposition home or self-care (01) ==
LOC: ER 01:03
DX: E11.65 Type 2 diabetes mellitus with hyperglycemia (principal); R53.83 Other fatigue; E83.51 Hypocalcemia; Z79.4 Long term (current) use of insulin; Z59.00 Homelessness unspecified; F17.210 Nicotine dependence, cigarettes, uncomplicated
CPT/HCPCS: 99284; 96374; 96361; 80048; 81003; 85025; 36415; 93005; J1815; J7040; 82330; A4663

== ENCOUNTER 2022-04-17 01:46 | Emergency (ER) | payer OTHER ==
[~2022-04-17] VITALS: Ht 208.3 cm; Wt 181.4 kg
[~2022-04-17 01:46] MED LIST changes: +CALC-903 PO
== END 2022-04-17 05:45 | disposition home or self-care (01) ==
LOC: ER 01:52
DX: R68.2 Dry mouth, unspecified (principal); Z59.00 Homelessness unspecified; E11.9 Type 2 diabetes mellitus without complications; Z79.4 Long term (current) use of insulin; Z91.14 Patient's other noncompliance with medication regimen; F17.210 Nicotine dependence, cigarettes, uncomplicated
CPT/HCPCS: A4663

== ENCOUNTER 2022-04-20 00:09 | Emergency (ER) | payer OTHER ==
[~2022-04-20] VITALS: Ht 208.3 cm; Wt 181.4 kg
[2022-04-20] MEDS ORDERED: IV NORMAL SALINE 1000 ML BAG IV ONE (05:00)
[2022-04-20 05:44] LABS: *BILIRUBIN,URIN NEGATIVE (NEGATIVE); *BLOOD, URINE NEGATIVE (NEGATIVE); *CLARITY,URINE CLEAR (CLEAR); *COLOR,URINE YELLOW (YELLOW); *KETONES,URINE 1+ (NEGATIVE); *UROBILINOGEN,URINE 0.2 E.U./dl (NORMAL); LEUKOCYTE ESTERASE ,URINE NEGATIVE (NEGATIVE); NITRITE, URINE NEGATIVE (NEGATIVE)
[2022-04-20 05:51] LABS: UGLUCOSE 2+ (NEGATIVE)
--- NOTE | 2022-04-20 06:19 | NUR ---
Patient refusing to get blood work done despite the findings on the urinalysis with positive ketones. Patient became increasingly aggressive and verbal to the ERMD. Patient started yelling, "fuck you hoe, you're a faggot. You're momma is a faggot, hoe". Security called and patient was removed from the emergency department. IV disconnected and removed.
[2022-04-20 06:22] VITALS: BP 144/79
== END 2022-04-20 06:22 | disposition home or self-care (01) ==
LOC: ER 00:13
DX: E11.65 Type 2 diabetes mellitus with hyperglycemia (principal); F17.210 Nicotine dependence, cigarettes, uncomplicated; Z59.00 Homelessness unspecified; Z79.4 Long term (current) use of insulin; Z91.14 Patient's other noncompliance with medication regimen
CPT/HCPCS: 99284; 96360; 99406; 81003; 82962; J7040; A4663

== ENCOUNTER 2022-05-10 23:38 | Emergency (ER) | payer OTHER ==
[~2022-05-10] VITALS: Ht 208.3 cm; Wt 181.4 kg
[2022-05-11] MEDS ORDERED: METF-441 PO (00:34)
--- NOTE | 2022-05-11 00:45 | NUR ---
Dr. Tim at bedside. MSE in progress.
--- NOTE | 2022-05-11 00:50 | NUR ---
Patient given written and verbal discharge instructions. Patient verbalizes understanding of instructions. Patient is ambulatory with steady gait. Refuses offer of custodial placement. Patient given list of available shelters in surrounding area.
[2022-05-11 00:55] VITALS: BP 141/72
== END 2022-05-11 00:50 | disposition home or self-care (01) ==
LOC: ER 23:58
DX: E11.65 Type 2 diabetes mellitus with hyperglycemia (principal); E66.01 Morbid (severe) obesity due to excess calories; Z68.41 Body mass index [BMI] 40.0-44.9, adult; Z59.00 Homelessness unspecified; Z79.4 Long term (current) use of insulin; F17.210 Nicotine dependence, cigarettes, uncomplicated
CPT/HCPCS: A4663

== ENCOUNTER 2022-05-31 22:24 | Emergency (ER) | payer OTHER ==
--- NOTE | 2022-05-31 23:10 | NUR ---
Patient was called to be triaged but patient was slleping in the waiting room, refusing to wake up. No distress noted.
--- NOTE | 2022-06-01 01:00 | NUR ---
Patient was not triaged or seen by ERMD.
== END 2022-06-01 01:00 | disposition left against medical advice (07) ==
LOC: ER 22:24
DX: Z53.21 Procedure and treatment not carried out due to patient leaving prior to being seen by health care provider (principal)
CPT/HCPCS: A4663

== ENCOUNTER 2022-06-10 03:38 | Emergency (ER) | payer OTHER ==
--- NOTE | 2022-06-10 04:11 | NUR ---
Patient was called to be triaged, but in the waiting room patient stated "I change my mind, I don't want to be seen anymore." Patient was encourage to stay to be triaged and be seen by ERMD but refused.
== END 2022-06-10 04:11 | disposition left against medical advice (07) ==
LOC: ER 03:41
DX: Z00.00 Encounter for general adult medical examination without abnormal findings (principal); Z53.21 Procedure and treatment not carried out due to patient leaving prior to being seen by health care provider

== ENCOUNTER 2022-06-11 00:48 | Emergency (ER) | payer OTHER ==
--- NOTE | 2022-06-11 06:32 | NUR ---
Patient left without being triaged or seen by ERMD.
== END 2022-06-11 06:36 | disposition left against medical advice (07) ==
LOC: ER 00:50
DX: Z53.21 Procedure and treatment not carried out due to patient leaving prior to being seen by health care provider (principal)

== ENCOUNTER 2022-06-16 22:18 | Emergency (ER) | payer OTHER ==
--- NOTE | 2022-06-17 05:00 | NUR ---
Patient was not seen by ERMD. Patient refused to be triaged. Slept in the waiting room.
== END 2022-06-17 05:00 | disposition left against medical advice (07) ==
LOC: ER 22:18
DX: Z53.21 Procedure and treatment not carried out due to patient leaving prior to being seen by health care provider (principal)

== ENCOUNTER 2022-06-28 23:20 | Emergency (ER) | payer OTHER ==
[~2022-06-28] VITALS: Ht 208.3 cm; Wt 181.4 kg
--- NOTE | 2022-06-28 23:30 | NUR ---
Dr. Reddy evaluated patient at bedside. MSE in progresss.
[2022-06-28] MEDS ORDERED: INSULIN REGULAR, HUMAN 300 UNIT/3 ML VIAL ONE (23:35)
[2022-06-28] MEDS ORDERED: INSULIN REGULAR, HUMAN 300 UNIT/3 ML VIAL SQ ONE (23:45)
[2022-06-28 23:54] LABS: CARBON DIOXIDE 27 mmol/L (21-32); CHLORIDE 102 mmol/L (98-107); UREA NITROGEN, BLOOD 15 mg/dL (7-18)
[2022-06-28 23:59] LABS: GLUCOSE 337 mg/dL (74-106)
[2022-06-29] MEDS ORDERED: INSU3INS6 SQ (00:18)
[2022-06-29 00:26] VITALS: BP 130/93
== END 2022-06-29 00:27 | disposition home or self-care (01) ==
LOC: ER 23:23
DX: E11.65 Type 2 diabetes mellitus with hyperglycemia (principal); F17.210 Nicotine dependence, cigarettes, uncomplicated; Z79.84 Long term (current) use of oral hypoglycemic drugs; Z79.4 Long term (current) use of insulin; Z59.00 Homelessness unspecified
CPT/HCPCS: 99283; 99406; 80048; 82009; 36415; 96372; J1815; A4663

== ENCOUNTER 2022-06-30 22:48 | Emergency (ER) | payer OTHER ==
[~2022-06-30] VITALS: Ht 208.3 cm; Wt 181.4 kg
[~2022-06-30 22:48] MED LIST changes: +INSU3INS6 SQ
[2022-07-01] MEDS ORDERED: AMOX-430 PO (04:52)
[2022-07-01] MEDS ORDERED: DOXY-326 PO (04:52)
[2022-07-01] MEDS ORDERED: [UNRECOGNIZED DRUG - CODE] MC (04:52)
[2022-07-01 05:38] VITALS: BP 142/78
== END 2022-07-01 05:40 | disposition home or self-care (01) ==
LOC: ER 22:48
DX: L02.31 Cutaneous abscess of buttock (principal); L03.317 Cellulitis of buttock; E11.9 Type 2 diabetes mellitus without complications; F17.210 Nicotine dependence, cigarettes, uncomplicated; Z79.4 Long term (current) use of insulin; Z59.00 Homelessness unspecified
CPT/HCPCS: A4663

== ENCOUNTER 2022-07-03 01:06 | Emergency (ER) | payer OTHER ==
[~2022-07-03] VITALS: Ht 203.2 cm; Wt 181.4 kg
[~2022-07-03 01:06] MED LIST changes: +AMOX-430 PO; +DOXY-326 PO; +[UNRECOGNIZED DRUG - CODE] MC
--- NOTE | 2022-07-03 02:05 | NUR ---
Patient discharged to home in stable condition. Written and verbal after care instructions given. Patient verbalizes understanding of instructions. Stressed follow up or return to ER for worsening s/s. Patient walked out wiht steady gait.
[2022-07-03 02:18] VITALS: BP 132/87
== END 2022-07-03 02:00 | disposition home or self-care (01) ==
LOC: ER 01:06
DX: L02.31 Cutaneous abscess of buttock (principal); E11.65 Type 2 diabetes mellitus with hyperglycemia; F17.210 Nicotine dependence, cigarettes, uncomplicated; Z59.00 Homelessness unspecified; Z79.4 Long term (current) use of insulin
CPT/HCPCS: A4663

== ENCOUNTER 2022-07-03 23:02 | Emergency (ER) | payer OTHER ==
[~2022-07-03] VITALS: Ht 208.3 cm; Wt 181.4 kg
[2022-07-04] MEDS ORDERED: INSULIN REGULAR, HUMAN 300 UNIT/3 ML VIAL SQ ONE (00:30)
[2022-07-04] MEDS ORDERED: INSULIN NPH 1,000 UNITS/10 ML VIAL SQ ONE (00:36)
[2022-07-04 00:52] LABS: CARBON DIOXIDE 30 mmol/L (21-32); CHLORIDE 102 mmol/L (98-107); CREATININE 1.1 mg/dL (0.6-1.3); POTASSIUM 3.7 mmol/L (3.5-5.1); UREA NITROGEN, BLOOD 14 mg/dL (7-18)
[2022-07-04 01:02] LABS: GLUCOSE 359 mg/dL (74-106)
[2022-07-04] MEDS ORDERED: INSULIN REGULAR, HUMAN 300 UNIT/3 ML VIAL ONE (01:28)
--- NOTE | 2022-07-04 01:45 | NUR ---
Patient given written and verbal discharge instructions. Patient verbalizes understanding of instructions. Patient is ambulatory with steady gait. Refuses offer of senior care placement. Patient given list of available shelters in surrounding area.
[2022-07-04 01:49] VITALS: BP 146/76
== END 2022-07-04 01:50 | disposition home or self-care (01) ==
LOC: ER 23:02
DX: E11.65 Type 2 diabetes mellitus with hyperglycemia (principal); F17.210 Nicotine dependence, cigarettes, uncomplicated; Z79.4 Long term (current) use of insulin; Z59.00 Homelessness unspecified
CPT/HCPCS: 99284; 99406; 80048; 82009; 82962; 36415; 96372; J1815; A4663

== ENCOUNTER 2022-07-05 22:36 | Emergency (ER) | payer OTHER ==
[~2022-07-05] VITALS: Ht 208.3 cm; Wt 181.4 kg
--- NOTE | 2022-07-06 01:28 | NUR ---
Patient was sleeping in waiting room with no distress. Woke up patient to be placed in room but stated "I don't want to be seen anymore." and patient kept sleeping.
== END 2022-07-06 01:28 | disposition left against medical advice (07) ==
LOC: ER 22:38
DX: Z53.21 Procedure and treatment not carried out due to patient leaving prior to being seen by health care provider (principal)

== ENCOUNTER 2022-07-07 03:52 | Emergency (ER) | payer OTHER ==
--- NOTE | 2022-07-07 03:59 | NUR ---
Patient was called to be traiged but stated in the waiting room "I don't want to be seen anymore. I only want my blood sugar to be checked." Patiet was asked about his CP and stated " It's gone now." Patient was encouraged multiple time to be seen by ERMD to be eval but patient refused.
== END 2022-07-07 04:00 | disposition left against medical advice (07) ==
LOC: ER 03:53
DX: Z53.21 Procedure and treatment not carried out due to patient leaving prior to being seen by health care provider (principal); Z00.00 Encounter for general adult medical examination without abnormal findings

== ENCOUNTER 2022-07-09 01:10 | Emergency (ER) | payer OTHER ==
[~2022-07-09] VITALS: Ht 208.3 cm; Wt 181.4 kg
--- NOTE | 2022-07-09 01:50 | NUR ---
After being traiged, patient was placed back in the waiting room due to patient not wanting to see ERMD. Patient states "I just want a bed to lay down on to sleep."
== END 2022-07-09 02:00 | disposition left against medical advice (07) ==
LOC: ER 01:13
DX: Z00.00 Encounter for general adult medical examination without abnormal findings (principal); Z53.21 Procedure and treatment not carried out due to patient leaving prior to being seen by health care provider

== ENCOUNTER → 2022-07-10 | Emergency (ER) | payer OTHER ==
[~2022-07-10] VITALS: Ht 203.2 cm; Wt 181.4 kg
--- NOTE | 2022-07-10 00:36 | NUR ---
Dr Reddy evaluating patient at bedside. MSE in progress.
[2022-07-10 01:12] LABS: CARBON DIOXIDE 30 mmol/L (21-32); CHLORIDE 103 mmol/L (98-107); GLUCOSE 267 mg/dL (74-106); UREA NITROGEN, BLOOD 17 mg/dL (7-18)
[2022-07-10 02:48] VITALS: BP 145/66
== END | disposition home or self-care (01) ==
LOC: ER 00:17
DX: E11.65 Type 2 diabetes mellitus with hyperglycemia (principal); J02.9 Acute pharyngitis, unspecified; Z79.4 Long term (current) use of insulin; Z79.84 Long term (current) use of oral hypoglycemic drugs; F17.210 Nicotine dependence, cigarettes, uncomplicated; Z59.00 Homelessness unspecified; Z20.822 Contact with and (suspected) exposure to COVID-19
CPT/HCPCS: 36415; 71045; A4663

== ENCOUNTER 2022-07-13 00:33 | Emergency (ER) | payer OTHER ==
[~2022-07-13] VITALS: Ht 208.3 cm; Wt 181.4 kg
--- NOTE | 2022-07-13 02:35 | NUR ---
Patient discharged in stable condition. A/O x 4. NAD noted. Ambulatory with a steady gait. Written and verbal after care instructions given. Patient verbalizes understanding of instructions. Stressed follow up or return to ER for worsening s/s.
== END 2022-07-13 02:36 | disposition home or self-care (01) ==
LOC: ER 00:40
DX: E11.65 Type 2 diabetes mellitus with hyperglycemia (principal); F17.210 Nicotine dependence, cigarettes, uncomplicated; Z79.4 Long term (current) use of insulin; Z79.84 Long term (current) use of oral hypoglycemic drugs; Z91.119 Patient's noncompliance with dietary regimen due to unspecified reason; Z91.14 Patient's other noncompliance with medication regimen
CPT/HCPCS: A4663

== ENCOUNTER 2022-07-14 00:12 | Emergency (ER) | payer OTHER ==
[~2022-07-14] VITALS: Ht 208.3 cm; Wt 181.4 kg
--- NOTE | 2022-07-14 01:12 | NUR ---
Aidan montoya in ED - 07/14/22 at 0116 by [id number] Patient discharged to home in stable condition. Written and verbal after care instructions given. Patient verbalizes understanding of instructions. Stressed follow up or return to ER for worsening s/s.
[2022-07-14 01:17] VITALS: BP 129/79
== END 2022-07-14 01:18 | disposition home or self-care (01) ==
LOC: ER 00:16
DX: E11.65 Type 2 diabetes mellitus with hyperglycemia (principal); E66.01 Morbid (severe) obesity due to excess calories; Z68.41 Body mass index [BMI] 40.0-44.9, adult; Z79.4 Long term (current) use of insulin; Z79.84 Long term (current) use of oral hypoglycemic drugs; F17.210 Nicotine dependence, cigarettes, uncomplicated; Z59.00 Homelessness unspecified; Z91.14 Patient's other noncompliance with medication regimen
CPT/HCPCS: A4663

== ENCOUNTER 2022-07-19 03:36 | Emergency (ER) | payer OTHER ==
[~2022-07-19] VITALS: Ht 208.3 cm; Wt 181.4 kg
--- NOTE | 2022-07-19 03:40 | NUR ---
Dr. Reddy at bedside for MSE.
[2022-07-19 04:13] LABS: CARBON DIOXIDE 26 mmol/L (21-32); CHLORIDE 102 mmol/L (98-107); CREATININE 1.1 mg/dL (0.6-1.3); POTASSIUM 4.4 mmol/L (3.5-5.1); UREA NITROGEN, BLOOD 18 mg/dL (7-18)
[2022-07-19 04:17] LABS: GLUCOSE 331 mg/dL (74-106)
[2022-07-19] MEDS ORDERED: INSULIN REGULAR, HUMAN 300 UNIT/3 ML VIAL ONE (04:27)
[2022-07-19] MEDS ORDERED: INSULIN REGULAR, HUMAN 300 UNIT/3 ML VIAL SQ ONE (04:30)
--- NOTE | 2022-07-19 04:38 | NUR ---
Patient given written and verbal discharge instructions. Patient verbalizes understanding of instructions. Patient is ambulatory with steady gait. Refuses offer of half-way placement. Patient given list of available shelters in surrounding area.
[2022-07-19 04:40] VITALS: BP 150/84
== END 2022-07-19 04:40 | disposition home or self-care (01) ==
LOC: ER 03:36
DX: E11.65 Type 2 diabetes mellitus with hyperglycemia (principal); Z79.4 Long term (current) use of insulin; Z79.84 Long term (current) use of oral hypoglycemic drugs; F17.210 Nicotine dependence, cigarettes, uncomplicated; Z59.00 Homelessness unspecified
CPT/HCPCS: 99283; 99406; 80048; 82009; 82962; 36415; 96372; J1815; A4663

== ENCOUNTER 2022-07-26 05:50 | Emergency (ER) | payer OTHER ==
[~2022-07-26] VITALS: Ht 193 cm; Wt 181.4 kg
--- NOTE | 2022-07-26 06:02 | NUR ---
Patient ambulated into room #1-a, informed of plan of care, assisted into gown and placed on monitor. MD at bedside for exam, no s/s of any distress noted at this time. side rails up will continue to monitor.
[2022-07-26] MEDS ORDERED: IV NORMAL SALINE 500 ML BAG IV ONE ×2 (06:15)
[2022-07-26 06:20] LABS: HEMATOCRIT 40.7 % (36.7-47.1); MEAN CORPUSCULAR HEMOGLOBIN 25.4 uug (23.8-33.4); MEAN CORPUSCULAR VOLUME 79.7 fL (73.0-96.2); PLATELET COUNT (AUTO) 221 K/uL (152-348)
--- NOTE | 2022-07-26 06:25 | NUR ---
#20g established in left ac, blood collected and sent to lab, IVF infusing as per order.
--- NOTE | 2022-07-26 06:29 | NUR ---
Allan GARCIA MD at bedside for exam.
[2022-07-26 06:30] LABS: CARBON DIOXIDE 26 mmol/L (21-32); CHLORIDE 102 mmol/L (98-107); CREATININE 0.9 mg/dL (0.6-1.3); GLUCOSE 275 mg/dL (74-106); UREA NITROGEN, BLOOD 17 mg/dL (7-18)
[2022-07-26] MEDS ORDERED: INSU3INS6 SQ (06:50)
--- NOTE | 2022-07-26 07:45 | NUR ---
Removed IV intact, site okay, bandaged. Gave pt. d/c instructions, pt. verbalized understanding.
== END 2022-07-26 07:46 | disposition home or self-care (01) ==
LOC: ER 05:50
DX: E11.65 Type 2 diabetes mellitus with hyperglycemia (principal); Z79.4 Long term (current) use of insulin; Z79.84 Long term (current) use of oral hypoglycemic drugs; Z59.00 Homelessness unspecified; F17.210 Nicotine dependence, cigarettes, uncomplicated; Z91.14 Patient's other noncompliance with medication regimen; E66.01 Morbid (severe) obesity due to excess calories; Z68.42 Body mass index [BMI] 45.0-49.9, adult
CPT/HCPCS: 99284; 96360; 80048; 82009; 85025; 36415; J7040 ×2; A4663

== ENCOUNTER 2022-07-29 21:56 | Emergency (ER) | payer OTHER ==
[~2022-07-29] VITALS: Ht 195.6 cm; Wt 181.4 kg
[2022-07-29] MEDS ORDERED: IV NORMAL SALINE 1000 ML BAG IV ONE ×2 (22:45)
[2022-07-29 23:17] LABS: BILIRUBIN,TOTAL 0.3 mg/dL (0.2-1.0); CREATININE 1.2 mg/dL (0.6-1.3); POTASSIUM 4.1 mmol/L (3.5-5.1); TOTAL PROTEIN, SERUM 7.2 g/dL (6.4-8.2)
[2022-07-29] MEDS ORDERED: INSULIN REGULAR, HUMAN 300 UNIT/3 ML VIAL IV ONE (23:45)
[2022-07-30] MEDS ORDERED: INSULIN REGULAR, HUMAN 300 UNIT/3 ML VIAL ONE (00:06)
[2022-07-30] MEDS ORDERED: INSULIN REGULAR, HUMAN 300 UNIT/3 ML VIAL IV ONE (01:00)
[2022-07-30 01:59] VITALS: BP 125/77
--- NOTE | 2022-07-30 01:59 | NUR ---
Patient discharged to home in stable condition. Written and verbal after care instructions given. Patient verbalizes understanding of instructions. Stressed follow up or return to ER for worsening s/s. Patient is a/ox4, NAD noted, patient is ambulatory with steady gait. Accucheck @0156 is 221
== END 2022-07-30 02:06 | disposition home or self-care (01) ==
LOC: ER 21:56
DX: E11.65 Type 2 diabetes mellitus with hyperglycemia (principal); Z91.14 Patient's other noncompliance with medication regimen; Z59.00 Homelessness unspecified; Z79.4 Long term (current) use of insulin; Z79.84 Long term (current) use of oral hypoglycemic drugs
CPT/HCPCS: 99284; 96361; 80053; 36415; 96374; 96376; J7040 ×2; J1815

== ENCOUNTER 2022-09-11 01:02 | Emergency (ER) | payer OTHER ==
[~2022-09-11] VITALS: Ht 203.2 cm; Wt 181.4 kg
[2022-09-11] MEDS ORDERED: INSU3INS6 SQ (01:29)
[2022-09-11 01:44] LABS: CARBON DIOXIDE 25 mmol/L (21-32); CHLORIDE 101 mmol/L (98-107); CREATININE 1.1 mg/dL (0.6-1.3); POTASSIUM 4.1 mmol/L (3.5-5.1); UREA NITROGEN, BLOOD 17 mg/dL (7-18)
[2022-09-11 01:52] LABS: GLUCOSE 410 mg/dL (74-106)
[2022-09-11] MEDS ORDERED: INSULIN GLARGINE,HUM 300 UNITS/3 ML CARTRIDGE SQ SCH (02:00)
[2022-09-11] MEDS ORDERED: INSULIN GLARGINE,HUM 300 UNITS/3 ML CARTRIDGE SQ ONE (02:01)
--- NOTE | 2022-09-11 02:30 | NUR ---
Patient discharged to home in stable condition. Written and verbal after care instructions given. Patient verbalizes understanding of instructions. Stressed follow up or return to ER for worsening s/s. Patient walked out with steady gait.
[2022-09-11 02:32] VITALS: BP 130/75
== END 2022-09-11 02:33 | disposition home or self-care (01) ==
LOC: ER 01:03
DX: E11.65 Type 2 diabetes mellitus with hyperglycemia (principal); E66.01 Morbid (severe) obesity due to excess calories; Z68.41 Body mass index [BMI] 40.0-44.9, adult; Z59.00 Homelessness unspecified; Z79.4 Long term (current) use of insulin; Z79.2 Long term (current) use of antibiotics; Z79.899 Other long term (current) drug therapy
CPT/HCPCS: 99283; 80048; 82009; 36415; 96372; J1815; A4663

== ENCOUNTER 2022-09-15 01:22 | Emergency (ER) | payer OTHER ==
[~2022-09-15] VITALS: Ht 208.3 cm; Wt 136.1 kg
[2022-09-15 01:57] LABS: HEMATOCRIT 39.7 % (36.7-47.1); MEAN CORPUSCULAR HEMOGLOBIN 25.2 uug (23.8-33.4); MEAN CORPUSCULAR VOLUME 79.5 fL (73.0-96.2); PLATELET COUNT (AUTO) 196 K/uL (152-348)
[2022-09-15 02:09] LABS: CARBON DIOXIDE 26 mmol/L (21-32); CHLORIDE 101 mmol/L (98-107); CREATININE 1.1 mg/dL (0.6-1.3); POTASSIUM 3.7 mmol/L (3.5-5.1); UREA NITROGEN, BLOOD 11 mg/dL (7-18)
[2022-09-15 02:10] LABS: GLUCOSE 451 mg/dL (74-106)
[2022-09-15] MEDS ORDERED: INSULIN REGULAR, HUMAN 300 UNIT/3 ML VIAL SQ ONE (02:45)
[2022-09-15] MEDS ORDERED: INSULIN LISPRO 300 UNIT/3 ML VIAL SQ ONE (02:49)
[2022-09-15] MEDS ORDERED: INSULIN REGULAR, HUMAN 300 UNIT/3 ML VIAL ONE (02:53)
[2022-09-15] MEDS ORDERED: INSU3INS6 SQ (03:16)
[2022-09-15 03:34] VITALS: BP 145/78
== END 2022-09-15 03:36 | disposition home or self-care (01) ==
LOC: ER 01:26
DX: E11.65 Type 2 diabetes mellitus with hyperglycemia (principal); F17.210 Nicotine dependence, cigarettes, uncomplicated; Z59.00 Homelessness unspecified; Z79.4 Long term (current) use of insulin; Z79.2 Long term (current) use of antibiotics; Z79.899 Other long term (current) drug therapy
CPT/HCPCS: 36415; 85025; A4663; J1815

== ENCOUNTER 2022-09-21 22:22 | Emergency (ER) | payer OTHER ==
[~2022-09-21] VITALS: Ht 208.3 cm; Wt 136.1 kg
[2022-09-21] MEDS ORDERED: INSU3INS6 SQ (23:00)
[2022-09-21 23:11] LABS: CARBON DIOXIDE 26 mmol/L (21-32); CHLORIDE 101 mmol/L (98-107); GLUCOSE 282 mg/dL (74-106); POTASSIUM 3.7 mmol/L (3.5-5.1); UREA NITROGEN, BLOOD 13 mg/dL (7-18)
[2022-09-21] MEDS ORDERED: INSULIN GLARGINE,HUM 300 UNITS/3 ML CARTRIDGE SQ ONE (23:36)
[2022-09-21] MEDS ORDERED: POTASSIUM CHLORIDE 20 MEQ TAB.PRT.SR ONE (23:37)
[2022-09-21] MEDS ORDERED: INSULIN GLARGINE,HUM 300 UNITS/3 ML CARTRIDGE SQ SCH (23:45)
[2022-09-21] MEDS ORDERED: POTASSIUM CHLORIDE 20 MEQ TAB.PRT.SR PO ONE (23:45)
--- NOTE | 2022-09-21 23:46 | NUR ---
Patient discharged to home in stable condition. Written and verbal after care instructions given. Patient verbalizes understanding of instructions. Stressed follow up or return to ER for worsening s/s. Patient is a/ox4, NAD noted. patient ambulatory with steady gait.
[2022-09-21 23:51] VITALS: BP 130/70
== END 2022-09-21 23:53 | disposition home or self-care (01) ==
LOC: ER 22:25
DX: E11.65 Type 2 diabetes mellitus with hyperglycemia (principal); F17.210 Nicotine dependence, cigarettes, uncomplicated; Z71.6 Tobacco abuse counseling; Z79.4 Long term (current) use of insulin; Z79.899 Other long term (current) drug therapy; Z79.2 Long term (current) use of antibiotics
CPT/HCPCS: 99283; 99406; 80048; 82009; 36415; 96372; J1815; A4663

== ENCOUNTER 2022-09-27 22:43 | Emergency (ER) | payer OTHER ==
[~2022-09-27] VITALS: Ht 208.3 cm; Wt 136.1 kg
--- NOTE | 2022-09-27 23:15 | NUR ---
Dr. Reddy at bedside for MSE.
[2022-09-27 23:55] LABS: CARBON DIOXIDE 27 mmol/L (21-32); CHLORIDE 100 mmol/L (98-107); POTASSIUM 3.3 mmol/L (3.5-5.1); UREA NITROGEN, BLOOD 13 mg/dL (7-18)
[2022-09-28 00:08] LABS: GLUCOSE 369 mg/dL (74-106)
[2022-09-28] MEDS ORDERED: INSULIN REGULAR, HUMAN 300 UNIT/3 ML VIAL SQ ONE (00:15)
[2022-09-28] MEDS ORDERED: INSULIN REGULAR, HUMAN 300 UNIT/3 ML VIAL ONE (00:21)
[2022-09-28 00:29] VITALS: BP 129/90
== END 2022-09-28 00:29 | disposition home or self-care (01) ==
LOC: ER 22:43
DX: E11.65 Type 2 diabetes mellitus with hyperglycemia (principal); Z87.891 Personal history of nicotine dependence; Z79.4 Long term (current) use of insulin; Z79.899 Other long term (current) drug therapy
CPT/HCPCS: 36415; A4663; J1815

== ENCOUNTER 2022-10-07 00:24 | Emergency (ER) | payer OTHER ==
[~2022-10-07] VITALS: Ht 208.3 cm; Wt 136.1 kg
--- NOTE | 2022-10-07 00:40 | NUR ---
PT AMB TO RM 3.
--- NOTE | 2022-10-07 00:45 | NUR ---
AT BEDSIDE FOR EVAL.
[2022-10-07 01:04] LABS: MEAN CORPUSCULAR HEMOGLOBIN 25.1 uug (23.8-33.4); MEAN CORPUSCULAR VOLUME 79.4 fL (73.0-96.2); PLATELET COUNT (AUTO) 187 K/uL (152-348)
--- NOTE | 2022-10-07 01:20 | NUR ---
CHEST X RAY DONE AT BEDSIDE.
[2022-10-07 01:27] LABS: ALANINE AMINOTRANSFERASE 51 U/L (16-63); ALKALINE PHOSPHATASE 108 U/L (50-136); ASPARTATE AMINOTRANSFERASE 22 U/L (15-37); BILIRUBIN,DIRECT < 0.1 mg/dL (0.0-0.2); BILIRUBIN,TOTAL 0.2 mg/dL (0.2-1.0); CARBON DIOXIDE 28 mmol/L (21-32); CHLORIDE 104 mmol/L (98-107); GLUCOSE 172 mg/dL (74-106); POTASSIUM 3.5 mmol/L (3.5-5.1); TOTAL PROTEIN, SERUM 6.7 g/dL (6.4-8.2); UREA NITROGEN, BLOOD 16 mg/dL (7-18)
[2022-10-07] MEDS: IV NORMAL SALINE 1000 ML BAG IV ONE (01:37)
--- NOTE | 2022-10-07 01:51 | NUR ---
EKG DONE AT BEDSIDE.
[2022-10-07] MEDS ORDERED: INSU3INS6 SQ ×2 (02:34)
[2022-10-07] MEDS ORDERED: AMLO-212 PO (02:34)
--- NOTE | 2022-10-07 03:15 | NUR ---
PT A,A AND O X 3 WITH NO C/O CP, NO SOB.Patient discharged to home in stable condition. Written and verbal after care instructions given. Patient verbalizes understanding of instructions. Stressed follow up or return to ER for worsening s/s.
[2022-10-07 04:47] VITALS: BP 160/89
== END 2022-10-07 03:15 | disposition home or self-care (01) ==
LOC: ER 00:31
DX: E11.65 Type 2 diabetes mellitus with hyperglycemia (principal); R60.0 Localized edema; I10 Essential (primary) hypertension; Z87.891 Personal history of nicotine dependence; Z79.4 Long term (current) use of insulin; Z79.899 Other long term (current) drug therapy; Z79.2 Long term (current) use of antibiotics
CPT/HCPCS: 99285; 96360; 71045; 80076; 80048; 82009; 83880; 85025; 84484; 36415; 93005; J7040; A4663

== ENCOUNTER 2022-10-12 01:11 | Emergency (ER) | payer OTHER ==
[~2022-10-12] VITALS: Ht 208.3 cm; Wt 136.1 kg
[~2022-10-12 01:11] MED LIST changes: +AMLO-212 PO
[2022-10-12] MEDS ORDERED: IV NORMAL SALINE 500 ML BAG IV ONE (01:45)
[2022-10-12 01:49] LABS: HEMATOCRIT 42.7 % (36.7-47.1); MEAN CORPUSCULAR HEMOGLOBIN 25.6 uug (23.8-33.4); MEAN CORPUSCULAR VOLUME 79.3 fL (73.0-96.2); PLATELET COUNT (AUTO) 221 K/uL (152-348)
[2022-10-12 02:03] LABS: BILIRUBIN,TOTAL 0.3 mg/dL (0.2-1.0); TOTAL PROTEIN, SERUM 7.6 g/dL (6.4-8.2)
--- NOTE | 2022-10-12 03:00 | NUR ---
Observed patient walk to restroom with a steady gait.
[2022-10-12] MEDS ORDERED: INSU100V7 SQ (03:54)
--- NOTE | 2022-10-12 04:05 | NUR ---
Patient discharged to home in stable condition. A/O x 4.NAD noted. Ambulatory with a stesdy gait. Written and verbal after care instructions given. Patient verbalizes understanding of instructions. Stressed follow up or return to ER for worsening s/s.
[2022-10-12 04:37] VITALS: BP 138/80
== END 2022-10-12 04:06 | disposition home or self-care (01) ==
LOC: ER 01:13
DX: E11.65 Type 2 diabetes mellitus with hyperglycemia (principal); Z87.891 Personal history of nicotine dependence; Z79.4 Long term (current) use of insulin; Z79.899 Other long term (current) drug therapy; Z79.2 Long term (current) use of antibiotics
CPT/HCPCS: 99283; 96360; 80053; 85025; 36415; J7040; A4663

== ENCOUNTER 2022-10-18 02:26 | Emergency (ER) | payer OTHER ==
[~2022-10-18] VITALS: Ht 208.3 cm; Wt 136.1 kg
[~2022-10-18 02:26] MED LIST changes: +INSU100V7 SQ
[2022-10-18] MEDS ORDERED: ONDANSETRON 4 MG/2 ML VIAL ONE (02:31)
--- NOTE | 2022-10-18 02:35 | NUR ---
Pt is noted alert, responsive , came in C/O Hyperglycemia and also runs out of Medications Lisinopril and Lantus. Pt care continue as awaits MD orders.
[2022-10-18] MEDS ORDERED: IV NORMAL SALINE 1000 ML BAG IV ONE (02:45)
[2022-10-18 02:58] LABS: HEMATOCRIT 38.7 % (36.7-47.1); MEAN CORPUSCULAR HEMOGLOBIN 25.2 uug (23.8-33.4); MEAN CORPUSCULAR VOLUME 78.7 fL (73.0-96.2); PLATELET COUNT (AUTO) 200 K/uL (152-348)
[2022-10-18 03:08] LABS: CREATININE 0.9 mg/dL (0.6-1.3); POTASSIUM 3.5 mmol/L (3.5-5.1)
[2022-10-18] MEDS ORDERED: LISI-782 PO ×2 (03:18→03:32)
[2022-10-18] MEDS ORDERED: INSU100V7 SQ (03:18)
[2022-10-18] MEDS ORDERED: INSU3INS6 SQ (03:32)
[2022-10-18 03:46] VITALS: BP 119/51
--- NOTE | 2022-10-18 03:51 | NUR ---
Pt is noted off the unit as he is been discharge to home with discharge instructions given and no S/S off dsitress as he is stable.
== END 2022-10-18 04:00 | disposition home or self-care (01) ==
LOC: ER 02:37
DX: E11.65 Type 2 diabetes mellitus with hyperglycemia (principal); I10 Essential (primary) hypertension; Z87.891 Personal history of nicotine dependence; Z79.4 Long term (current) use of insulin; Z79.2 Long term (current) use of antibiotics; Z79.899 Other long term (current) drug therapy
CPT/HCPCS: 99283; 96360; 80048; 85025; 36415; J2405; J7040; A4663

== ENCOUNTER 2022-10-22 00:50 | Emergency (ER) | payer OTHER ==
[~2022-10-22] VITALS: Ht 208.3 cm; Wt 136.1 kg
[~2022-10-22 00:50] MED LIST changes: +LISI-782 PO
--- NOTE | 2022-10-22 01:42 | NUR ---
Patient walked into ER c/o hyperglycemia.
--- NOTE | 2022-10-22 02:06 | NUR ---
Dr. Ballesteros at bedside for MSE.
[2022-10-22 03:21] LABS: POTASSIUM 3.5 mmol/L (3.5-5.1)
--- NOTE | 2022-10-22 03:23 | NUR ---
Telephone call from labtammy reported blood glucose of 308. Informed Dr Ballesteros.
[2022-10-22] MEDS ORDERED: INSULIN REGULAR, HUMAN 300 UNIT/3 ML VIAL SQ ONE (03:30)
[2022-10-22] MEDS ORDERED: INSULIN REGULAR, HUMAN 300 UNIT/3 ML VIAL ONE (03:30)
[2022-10-22] MEDS ORDERED: INSU3INS6 SQ (03:38)
--- NOTE | 2022-10-22 03:45 | NUR ---
Patient discharged to home in stable condition. Written and verbal after care instructions given. Patient verbalizes understanding of instructions. Stressed follow up or return to ER for worsening s/s. Patient ambulated out of the ER with steady gait. All belongings with patient.
[2022-10-22 03:55] VITALS: BP 140/66
== END 2022-10-22 03:45 | disposition home or self-care (01) ==
LOC: ER 00:53
DX: E11.65 Type 2 diabetes mellitus with hyperglycemia (principal); Z87.891 Personal history of nicotine dependence; Z79.4 Long term (current) use of insulin; Z79.899 Other long term (current) drug therapy
CPT/HCPCS: 99283; 80048; 82962; 36415; 96372; J1815; A4663

== ENCOUNTER 2022-10-26 02:23 | Emergency (ER) | payer OTHER ==
[~2022-10-26] VITALS: Ht 203.2 cm; Wt 181.4 kg
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
[2022-10-26] MEDS ORDERED: IV NORMAL SALINE 500 ML BAG IV ONE (02:45)
[2022-10-26 02:49] LABS: SITE, VBG RIGHT RADIAL; VENT MODE, VBG Room Air
[2022-10-26 02:56] LABS: MEAN CORPUSCULAR VOLUME 78.3 fL (73.0-96.2); PLATELET COUNT (AUTO) 203 K/uL (152-348)
--- NOTE | 2022-10-26 02:57 | NUR ---
Pt care continue as #20g IV insterted and started on IVF 0.9NS as ordered.
[2022-10-26 03:03] LABS: CARBON DIOXIDE 27 mmol/L (21-32); CHLORIDE 103 mmol/L (98-107); CREATININE 0.8 mg/dL (0.6-1.3); GLUCOSE 200 mg/dL (74-106); POTASSIUM 3.4 mmol/L (3.5-5.1); UREA NITROGEN, BLOOD 15 mg/dL (7-18)
--- NOTE | 2022-10-26 03:12 | NUR ---
Pt care continue as X-RAY is done.
[2022-10-26] MEDS ORDERED: INSU100V7 SQ (03:43)
--- NOTE | 2022-10-26 03:58 | NUR ---
Pt is noted off the unit as he is been discharged to home with all discharged instructions given with no S/S off distress or C/O pain.
[2022-10-26 04:05] VITALS: BP 136/72
[2022-10-29] MEDS ORDERED: LISI10TA29 PO (03:29)
== END 2022-10-26 04:07 | disposition home or self-care (01) ==
LOC: ER 02:25
DX: E11.65 Type 2 diabetes mellitus with hyperglycemia (principal); E83.51 Hypocalcemia; M79.672 Pain in left foot; Z87.891 Personal history of nicotine dependence; Z79.4 Long term (current) use of insulin; Z79.2 Long term (current) use of antibiotics; Z79.1 Long term (current) use of non-steroidal anti-inflammatories (NSAID); Z79.899 Other long term (current) drug therapy
CPT/HCPCS: 99284; 96360; 80048; 82009; 82962; 85025; 36415; 73630; 36600; J7040; A4663

== ENCOUNTER → 2022-10-29 | Emergency (ER) | payer OTHER ==
[~2022-10-29] VITALS: Ht 208.3 cm; Wt 181.4 kg
[~2022-10-29] MED LIST changes: +LISI10TA29 PO; +LISINOPRIL 10 MG TABLET ONE; +LISINOPRIL 10 MG TABLET PO ONE
[2022-10-29 03:16] LABS: CARBON DIOXIDE 27 mmol/L (21-32); CHLORIDE 104 mmol/L (98-107); CREATININE 0.9 mg/dL (0.6-1.3); GLUCOSE 183 mg/dL (74-106); POTASSIUM 3.2 mmol/L (3.5-5.1); UREA NITROGEN, BLOOD 12 mg/dL (7-18)
--- NOTE | 2022-10-29 03:27 | NUR ---
Patient resting comfortably in bed, eyes closed. No signs of acute distress noted.
[2022-10-29 05:53] VITALS: BP 130/75
== END | disposition home or self-care (01) ==
LOC: ER 02:23
DX: R60.0 Localized edema (principal); E11.65 Type 2 diabetes mellitus with hyperglycemia; I10 Essential (primary) hypertension; Z76.0 Encounter for issue of repeat prescription; Z87.891 Personal history of nicotine dependence; Z79.4 Long term (current) use of insulin; Z79.2 Long term (current) use of antibiotics; Z79.899 Other long term (current) drug therapy
CPT/HCPCS: 36415; A4663

== ENCOUNTER 2022-11-02 01:08 | Emergency (ER) | payer OTHER ==
[~2022-11-02] VITALS: Ht 203.2 cm; Wt 131.5 kg
[~2022-11-02 01:08] MED LIST changes: -LISINOPRIL 10 MG TABLET ONE; -LISINOPRIL 10 MG TABLET PO ONE
--- NOTE | 2022-11-02 05:08 | NUR ---
Patient discharged to home in stable condition. Written and verbal after care instructions given. Patient verbalizes understanding of instructions. Stressed follow up or return to ER for worsening s/s. Patient is a/ox4, NAD noted. patient ambulated with steady gait
[2022-11-02 05:09] VITALS: BP 127/77
== END 2022-11-02 05:09 | disposition home or self-care (01) ==
LOC: ER 01:10
DX: E11.65 Type 2 diabetes mellitus with hyperglycemia (principal); Z87.891 Personal history of nicotine dependence; Z79.4 Long term (current) use of insulin; Z79.899 Other long term (current) drug therapy; Z79.2 Long term (current) use of antibiotics
CPT/HCPCS: A4663

== ENCOUNTER 2022-11-05 23:41 | Emergency (ER) | payer OTHER ==
[~2022-11-05] VITALS: Ht 208.3 cm; Wt 181.4 kg
--- NOTE | 2022-11-06 02:30 | NUR ---
PT AMB TO RM 5A WITH STEADY GAIT.
[2022-11-06 03:35] VITALS: BP 135/82
== END 2022-11-06 03:36 | disposition home or self-care (01) ==
LOC: ER 23:45
DX: E11.65 Type 2 diabetes mellitus with hyperglycemia (principal); Z87.891 Personal history of nicotine dependence; Z79.4 Long term (current) use of insulin; Z79.2 Long term (current) use of antibiotics; Z79.899 Other long term (current) drug therapy
CPT/HCPCS: A4663

== ENCOUNTER 2022-11-07 01:58 | Emergency (ER) | payer OTHER ==
[~2022-11-07] VITALS: Ht 208.3 cm; Wt 181.4 kg
--- NOTE | 2022-11-07 02:15 | NUR ---
Dr. Chaves at bedside for MSE.
[2022-11-07 02:42] VITALS: BP 130/70
== END 2022-11-07 02:43 | disposition home or self-care (01) ==
LOC: ER 01:58
DX: E11.65 Type 2 diabetes mellitus with hyperglycemia (principal); E11.9 Type 2 diabetes mellitus without complications; Z87.891 Personal history of nicotine dependence; Z79.4 Long term (current) use of insulin; Z79.899 Other long term (current) drug therapy
CPT/HCPCS: A4663

== ENCOUNTER 2022-12-05 03:35 | Emergency (ER) | payer OTHER ==
--- NOTE | 2022-12-05 06:56 | NUR ---
Pt not in waiting room.
== END 2022-12-05 06:57 | disposition left against medical advice (07) ==
LOC: ER 03:35
DX: Z53.21 Procedure and treatment not carried out due to patient leaving prior to being seen by health care provider (principal)

== ENCOUNTER 2022-12-22 02:08 | Emergency (ER) | payer OTHER ==
[~2022-12-22] VITALS: Ht 208.3 cm; Wt 181.4 kg
[~2022-12-22 02:08] MED LIST changes: +DICY20TA11 PO; +ONDA4TAB5 PO
[2022-12-22 03:49] VITALS: O2SAT 97
== END 2022-12-22 06:06 | disposition left against medical advice (07) ==
LOC: ER 02:10
DX: Z53.21 Procedure and treatment not carried out due to patient leaving prior to being seen by health care provider (principal)
CPT/HCPCS: A4663

== ENCOUNTER 2022-12-28 03:41 | Emergency (ER) | payer OTHER ==
[~2022-12-28] VITALS: Ht 208.3 cm; Wt 181.4 kg
[2022-12-28 04:46] LABS: CALCIUM 7.9 mg/dL (8.5-10.1); CARBON DIOXIDE 28 mmol/L (21-32); CHLORIDE 103 mmol/L (98-107); GLUCOSE 240 mg/dL (74-106); POTASSIUM 3.5 mmol/L (3.5-5.1); SODIUM SERUM 139 mmol/L (136-145); UREA NITROGEN, BLOOD 16 mg/dL (7-18)
[2022-12-28 04:48] LABS: *BILIRUBIN,URIN NEGATIVE (NEGATIVE); *BLOOD, URINE NEGATIVE (NEGATIVE); *CLARITY,URINE CLEAR (CLEAR); *COLOR,URINE YELLOW (YELLOW); *KETONES,URINE NEGATIVE (NEGATIVE); *PROTEIN,URINE NEGATIVE (NEGATIVE); *UROBILINOGEN,URINE 0.2 E.U./dl (NORMAL); LEUKOCYTE ESTERASE ,URINE NEGATIVE (NEGATIVE); NITRITE, URINE NEGATIVE (NEGATIVE)
[2022-12-28 04:55] LABS: UGLUCOSE 2+ (NEGATIVE)
[2022-12-28 05:08] LABS: ACETONE, SERUM NEGATIVE (NEGATIVE)
[2022-12-28] MEDS ORDERED: BLOO1EAC70 MC (05:40)
[2022-12-28] MEDS ORDERED: INSU3INS6 SQ (05:46)
[2022-12-28 06:22] VITALS: BP 147/77; O2SAT 95
== END 2022-12-28 06:22 | disposition home or self-care (01) ==
LOC: ER 03:53
DX: E11.65 Type 2 diabetes mellitus with hyperglycemia (principal); E66.01 Morbid (severe) obesity due to excess calories; Z68.41 Body mass index [BMI] 40.0-44.9, adult; Z87.891 Personal history of nicotine dependence; Z79.4 Long term (current) use of insulin; Z79.2 Long term (current) use of antibiotics; Z79.899 Other long term (current) drug therapy
CPT/HCPCS: 36415; A4663

== ENCOUNTER 2023-01-08 23:51 | Emergency (ER) | payer OTHER ==
[~2023-01-08] VITALS: Ht 208.3 cm; Wt 181.4 kg
[~2023-01-08 23:51] MED LIST changes: +BLOO1EAC70 MC
[2023-01-09] MEDS ORDERED: LISI10TA29 PO (00:20)
[2023-01-09] MEDS ORDERED: INSU3INS6 SQ (00:20)
[2023-01-09 00:34] LABS: CALCIUM 8.3 mg/dL (8.5-10.1); CARBON DIOXIDE 28 mmol/L (21-32); CHLORIDE 104 mmol/L (98-107); CREATININE 0.9 mg/dL (0.6-1.3); GLUCOSE 244 mg/dL (74-106); POTASSIUM 3.5 mmol/L (3.5-5.1); SODIUM SERUM 138 mmol/L (136-145); UREA NITROGEN, BLOOD 15 mg/dL (7-18)
[2023-01-09 00:37] LABS: ACETONE, SERUM NEGATIVE (NEGATIVE)
[2023-01-09 00:51] VITALS: BP 135/74; O2SAT 97
[2023-01-11] MEDS ORDERED: INSU3INS6 SQ (04:07)
== END 2023-01-09 00:51 | disposition home or self-care (01) ==
LOC: ER 23:58
DX: E11.65 Type 2 diabetes mellitus with hyperglycemia (principal); Z76.0 Encounter for issue of repeat prescription; Z87.891 Personal history of nicotine dependence; Z79.4 Long term (current) use of insulin; Z79.899 Other long term (current) drug therapy; Z79.2 Long term (current) use of antibiotics
CPT/HCPCS: 36415; A4663

== ENCOUNTER 2023-01-16 00:55 | Emergency (ER) | payer OTHER ==
[~2023-01-16] VITALS: Ht 208.3 cm; Wt 181.4 kg
[2023-01-16 01:04] VITALS: O2SAT 99
== END 2023-01-16 01:28 | disposition home or self-care (01) ==
LOC: ER 00:55
DX: E11.65 Type 2 diabetes mellitus with hyperglycemia (principal); Z87.891 Personal history of nicotine dependence; Z79.4 Long term (current) use of insulin; Z79.899 Other long term (current) drug therapy; Z79.2 Long term (current) use of antibiotics
CPT/HCPCS: A4663

== ENCOUNTER 2023-03-16 14:47 | Emergency (ER) | payer OTHER ==
[~2023-03-16] VITALS: Ht 198.1 cm; Wt 181.4 kg
[2023-03-16] MEDS ORDERED: LISI10TA29 PO (15:34)
[2023-03-16] MEDS ORDERED: INSU3INS6 SQ (15:34)
[2023-03-16 15:43] VITALS: BP 120/74; O2SAT 97
== END 2023-03-16 15:47 | disposition home or self-care (01) ==
LOC: ER 14:47
DX: E11.65 Type 2 diabetes mellitus with hyperglycemia (principal); I10 Essential (primary) hypertension; Z76.0 Encounter for issue of repeat prescription; Z79.4 Long term (current) use of insulin; Z79.899 Other long term (current) drug therapy
CPT/HCPCS: A4606; A4663

== ENCOUNTER 2023-03-23 02:29 | Emergency (ER) | payer OTHER | END 2023-03-23 04:55 | disposition left against medical advice (07) | LOC: ER 02:33 | DX: Z53.21 Procedure and treatment not carried out due to patient leaving prior to being seen by health care provider (principal) ==

== ENCOUNTER 2023-03-25 01:09 | Emergency (ER) | payer OTHER ==
[~2023-03-25] VITALS: Ht 208.3 cm; Wt 181.4 kg
[2023-03-25] MEDS ORDERED: IV NORMAL SALINE 1000 ML BAG IV ONE (01:45)
[2023-03-25 02:21] LABS: CALCIUM 8.8 mg/dL (8.5-10.1); CREATININE 1.2 mg/dL (0.6-1.3); POTASSIUM 4.1 mmol/L (3.5-5.1)
[2023-03-25 02:21] LABS: VBG BASE EXCESS -0.9 mmol/L (-3-3); VBG MetHb 0.3 %; VBG O2HB 77.4 %; VBG PCO2 46.2 mmHg (40-52); VBG PH 7.352 (7.31-7.41); VBG PO2 43.2 mmHg (30-50); VBG TOTAL HEMOGLOBIN 13.9 G/dL (12.0-16.0)
[2023-03-25 02:22] LABS: BASOPHILS # (AUTO) 0.1 K/UL (0.0-0.2); BASOPHILS % (AUTO) 1.6 % (0.0-2.0); EOSINOPHILS # (AUTO) 0.2 K/uL (0.0-0.7); EOSINOPHILS % (AUTO) 2.5 % (0.0-7.0); HEMATOCRIT 40.5 % (36.7-47.1); LYMPHOCYTES # (AUTO) 2.2 K/uL (0.8-4.8); LYMPHOCYTES % (AUTO) 26.8 % (20.5-51.5); MEAN CORPUSCULAR HEMOGLOBIN 25.6 uug (23.8-33.4); MEAN CORPUSCULAR HGB CONC 32 g/dL (32.5-36.3); MONOCYTES # (AUTO) 0.8 K/uL (0.1-1.30); MONOCYTES % (AUTO) 9.6 % (0.0-11.0); NEUTROPHILS # (AUTO) 4.9 K/uL (1.8-8.9); NEUTROPHILS % (AUTO) 59.5 % (38.5-71.5); PLATELET COUNT (AUTO) 207 K/uL (152-348); RED BLOOD CELL COUNT(AUTO) 5.07 MIL/uL (4.06-5.63); RED CELL DISTRIBUTION WIDTH 15.9 % (12.1-16.2); WHITE BLOOD COUNT (AUTO) 8.2 K/uL (3.6-10.2)
[2023-03-25 02:24] LABS: DIFFERENTIAL COMMENT 1
[2023-03-25] MEDS ORDERED: INSULIN NPH 1,000 UNITS/10 ML VIAL SQ ONE (02:44)
[2023-03-25] MEDS ORDERED: INSULIN REGULAR, HUMAN 300 UNIT/3 ML VIAL IV ONE (02:45)
[2023-03-25] MEDS ORDERED: INSU3INS6 SQ (03:28)
[2023-03-25 04:06] VITALS: BP 118/67; O2SAT 97
== END 2023-03-25 03:50 | disposition home or self-care (01) ==
LOC: ER 01:14
DX: E11.65 Type 2 diabetes mellitus with hyperglycemia (principal); I10 Essential (primary) hypertension; Z87.891 Personal history of nicotine dependence; Z79.4 Long term (current) use of insulin; Z79.2 Long term (current) use of antibiotics; Z79.899 Other long term (current) drug therapy
CPT/HCPCS: 99283; 96374; 96361; 80048; 82009; 82962 ×2; 85025; 36415; 36600; J7040; A4606; A4663; J1815

== ENCOUNTER 2023-04-04 00:19 | Emergency (ER) | payer OTHER ==
[~2023-04-04] VITALS: Ht 208.3 cm; Wt 181.4 kg
[2023-04-04] MEDS ORDERED: INSULIN GLARGINE,HUM 300 UNITS/3 ML CARTRIDGE SQ ONE (01:07)
[2023-04-04] MEDS ORDERED: INSULIN REGULAR, HUMAN 300 UNIT/3 ML VIAL SQ ONE (01:15)
[2023-04-04] MEDS ORDERED: IV NS 1000 ML 1,000 ML IV ONE (01:15)
[2023-04-04] MEDS ORDERED: INSULIN GLARGINE,HUM 300 UNITS/3 ML CARTRIDGE SQ SCH (01:15)
[2023-04-04] MEDS ORDERED: INSULIN REGULAR, HUMAN 300 UNIT/3 ML VIAL ONE (01:34)
[2023-04-04 01:57] LABS: CALCIUM 8.7 mg/dL (8.5-10.1); CREATININE 1.1 mg/dL (0.6-1.3); MAGNESIUM 2.3 mg/dL (1.8-2.4); PHOSPHOROUS 4.2 mg/dL (2.5-4.9); POTASSIUM 5.5 mmol/L (3.5-5.1)
[2023-04-04 03:40] LABS: *BILIRUBIN,URIN NEGATIVE (NEGATIVE); *BLOOD, URINE NEGATIVE (NEGATIVE); *CLARITY,URINE CLEAR (CLEAR); *COLOR,URINE YELLOW (YELLOW); *KETONES,URINE NEGATIVE (NEGATIVE); *PROTEIN,URINE NEGATIVE (NEGATIVE); *UROBILINOGEN,URINE 0.2 E.U./dl (NORMAL); LEUKOCYTE ESTERASE ,URINE NEGATIVE (NEGATIVE); NITRITE, URINE NEGATIVE (NEGATIVE); PH,URINE 5.5 (5.0-8.0)
[2023-04-04 03:42] LABS: UGLUCOSE 2+ (NEGATIVE)
[2023-04-04 03:48] LABS: BACTERIA,URINE NONE SEEN /HPF (NONE SEEN)
[2023-04-04 03:49] LABS: RBC,URINE 0-3 /HPF (0-3); SQUAMOUS EPITHELIAL CELL,UR FEW /HPF (NONE SEEN); WBC,URINE NONE SEEN /HPF (0-3)
[2023-04-04 04:24] VITALS: BP 164/88; O2SAT 100
[2023-04-06] MEDS ORDERED: INSU3INS6 SQ (04:06)
== END 2023-04-04 04:29 | disposition home or self-care (01) ==
LOC: ER 00:21
DX: E11.65 Type 2 diabetes mellitus with hyperglycemia (principal); I10 Essential (primary) hypertension; Z91.148 Patient's other noncompliance with medication regimen for other reason; Z87.891 Personal history of nicotine dependence; Z79.4 Long term (current) use of insulin; Z79.2 Long term (current) use of antibiotics; Z79.899 Other long term (current) drug therapy
CPT/HCPCS: 99284; 96360; 80048; 81001; 82009; 82962; 83735; 84100; 36415; 96372 ×2; J1815 ×2; J7040; A4606; A4663

== ENCOUNTER 2023-04-06 23:18 | Emergency (ER) | payer OTHER ==
[~2023-04-06] VITALS: Ht 436.9 cm; Wt 181.4 kg
[2023-04-07 00:37] VITALS: O2SAT 99
[2023-04-07] MEDS ORDERED: INSU3INS6 SQ (23:05)
== END 2023-04-07 05:30 | disposition left against medical advice (07) ==
LOC: ER 23:20
DX: E11.65 Type 2 diabetes mellitus with hyperglycemia (principal); Z53.21 Procedure and treatment not carried out due to patient leaving prior to being seen by health care provider
CPT/HCPCS: A4606; A4663

== ENCOUNTER 2023-04-07 22:39 | Emergency (ER) | payer OTHER ==
[~2023-04-07] VITALS: Ht 208.3 cm; Wt 181.4 kg
[2023-04-07] MEDS ORDERED: INSU3INS6 SQ (23:05)
[2023-04-07 23:10] LABS: CALCIUM 8.8 mg/dL (8.5-10.1); CARBON DIOXIDE 25 mmol/L (21-32); CHLORIDE 104 mmol/L (98-107); CREATININE 1.2 mg/dL (0.6-1.3); GLUCOSE 249 mg/dL (74-106); POTASSIUM 3.5 mmol/L (3.5-5.1); SODIUM SERUM 139 mmol/L (136-145); UREA NITROGEN, BLOOD 14 mg/dL (7-18)
[2023-04-07 23:22] LABS: ACETONE, SERUM NEGATIVE (NEGATIVE)
[2023-04-08 00:52] VITALS: BP 140/82; TEMP 97.8; O2SAT 99
[2023-04-09] MEDS ORDERED: FLAS1KIT2 TP (01:49)
[2023-04-09] MEDS ORDERED: FLAS1EAC2 TP (01:49)
== END 2023-04-08 00:53 | disposition home or self-care (01) ==
LOC: ER 22:41
DX: E11.65 Type 2 diabetes mellitus with hyperglycemia (principal); E66.01 Morbid (severe) obesity due to excess calories; Z68.41 Body mass index [BMI] 40.0-44.9, adult; F17.200 Nicotine dependence, unspecified, uncomplicated; Z79.899 Other long term (current) drug therapy; Z79.4 Long term (current) use of insulin
CPT/HCPCS: 36415; A4606; A4663

== ENCOUNTER 2023-04-09 00:57 | Emergency (ER) | payer OTHER ==
[~2023-04-09] VITALS: Ht 203.2 cm; Wt 181.4 kg
[2023-04-09] MEDS ORDERED: FLAS1KIT2 TP (01:49)
[2023-04-09] MEDS ORDERED: FLAS1EAC2 TP (01:49)
[2023-04-09 02:13] VITALS: BP 145/93; TEMP 98.5; O2SAT 99
== END 2023-04-09 02:13 | disposition home or self-care (01) ==
LOC: ER 01:05
DX: E11.65 Type 2 diabetes mellitus with hyperglycemia (principal); E66.01 Morbid (severe) obesity due to excess calories; F17.200 Nicotine dependence, unspecified, uncomplicated; Z79.899 Other long term (current) drug therapy; Z79.4 Long term (current) use of insulin; Z68.41 Body mass index [BMI] 40.0-44.9, adult
CPT/HCPCS: A4606; A4663

== ENCOUNTER 2023-04-11 03:06 | Emergency (ER) | payer OTHER ==
[~2023-04-11 03:06] MED LIST changes: +FLAS1EAC2 TP; +FLAS1KIT2 TP
[2023-04-12] MEDS ORDERED: HUM10VIA3 SQ (01:17)
[2023-04-12] MEDS ORDERED: INSU100V7 SQ (03:30)
== END 2023-04-11 07:22 | disposition left against medical advice (07) ==
LOC: ER 03:07
DX: Z53.21 Procedure and treatment not carried out due to patient leaving prior to being seen by health care provider (principal)

== ENCOUNTER 2023-04-11 23:10 | Emergency (ER) | payer OTHER ==
[~2023-04-11] VITALS: Ht 208.3 cm; Wt 181.4 kg
[2023-04-11] MEDS: IV NORMAL SALINE 1000 ML BAG IV ONE (23:45)
[2023-04-11 23:47] LABS: BASOPHILS # (AUTO) 0.1 K/UL (0.0-0.2); BASOPHILS % (AUTO) 0.9 % (0.0-2.0); DIFFERENTIAL COMMENT 0; EOSINOPHILS # (AUTO) 0.2 K/uL (0.0-0.7); EOSINOPHILS % (AUTO) 2.2 % (0.0-7.0); HEMOGLOBIN 12.1 g/dL (12.5-16.3); LYMPHOCYTES # (AUTO) 2.4 K/uL (0.8-4.8); LYMPHOCYTES % (AUTO) 32.3 % (20.5-51.5); MEAN CORPUSCULAR HEMOGLOBIN 25.5 uug (23.8-33.4); MEAN CORPUSCULAR HGB CONC 32 g/dL (32.5-36.3); MEAN CORPUSCULAR VOLUME 79.9 fL (73.0-96.2); MONOCYTES # (AUTO) 0.9 K/uL (0.1-1.30); NEUTROPHILS # (AUTO) 3.9 K/uL (1.8-8.9); NEUTROPHILS % (AUTO) 52.6 % (38.5-71.5); PLATELET COUNT (AUTO) 192 K/uL (152-348); RED BLOOD CELL COUNT(AUTO) 4.75 MIL/uL (4.06-5.63); RED CELL DISTRIBUTION WIDTH 15.5 % (12.1-16.2); WHITE BLOOD COUNT (AUTO) 7.5 K/uL (3.6-10.2)
[2023-04-11] MEDS ORDERED: INSULIN REGULAR, HUMAN 300 UNIT/3 ML VIAL ONE (23:49)
[2023-04-11] MEDS: INSULIN REGULAR, HUMAN 300 UNIT/3 ML VIAL SQ ONE (23:50)
[2023-04-11 23:54] LABS: CALCIUM 8.6 mg/dL (8.5-10.1); POTASSIUM 4.1 mmol/L (3.5-5.1)
[2023-04-12] MEDS: INSULIN REGULAR, HUMAN 300 UNIT/3 ML VIAL SQ ONE (01:08)
[2023-04-12] MEDS ORDERED: HUM10VIA3 SQ (01:17)
[2023-04-12] MEDS: IV NORMAL SALINE 500 ML BAG IV ONE (01:45)
[2023-04-12] MEDS ORDERED: INSU100V7 SQ (03:30)
[2023-04-12 03:36] VITALS: BP 149/81; TEMP 98; O2SAT 98
== END 2023-04-12 03:40 | disposition home or self-care (01) ==
LOC: ER 23:14
DX: E11.65 Type 2 diabetes mellitus with hyperglycemia (principal); E66.01 Morbid (severe) obesity due to excess calories; Z68.41 Body mass index [BMI] 40.0-44.9, adult; F17.200 Nicotine dependence, unspecified, uncomplicated; Z79.899 Other long term (current) drug therapy
CPT/HCPCS: 99284; 96360; 80048; 82962; 85025; 36415; 96372 ×2; 96361; J1815; J7040 ×2; A4606; A4663

== ENCOUNTER 2023-04-14 02:58 | Emergency (ER) | payer OTHER ==
[~2023-04-14] VITALS: Ht 203.2 cm; Wt 181.4 kg
[2023-04-14 03:04] VITALS: O2SAT 98
[2023-04-14] MEDS ORDERED: INSU3INS6 SQ (03:15)
== END 2023-04-14 03:35 | disposition home or self-care (01) ==
LOC: ER 03:04
DX: E11.9 Type 2 diabetes mellitus without complications (principal); Z76.0 Encounter for issue of repeat prescription; Z87.891 Personal history of nicotine dependence; Z79.4 Long term (current) use of insulin; Z79.2 Long term (current) use of antibiotics; Z79.899 Other long term (current) drug therapy
CPT/HCPCS: A4606; A4663

== ENCOUNTER 2023-04-17 02:33 | Emergency (ER) | payer OTHER | END 2023-04-17 02:57 | disposition left against medical advice (07) | LOC: ER 02:35 | DX: Z53.21 Procedure and treatment not carried out due to patient leaving prior to being seen by health care provider (principal) ==

== ENCOUNTER 2023-04-21 03:29 | Emergency (ER) | payer OTHER ==
[~2023-04-21] VITALS: Ht 208.3 cm; Wt 181.4 kg
[2023-04-21] MEDS ORDERED: [UNRECOGNIZED DRUG - CODE] MC (05:12)
[2023-04-21 05:28] VITALS: BP 150/77; O2SAT 98
== END 2023-04-21 05:28 | disposition home or self-care (01) ==
LOC: ER 03:33
DX: E11.65 Type 2 diabetes mellitus with hyperglycemia (principal); I10 Essential (primary) hypertension; E66.01 Morbid (severe) obesity due to excess calories; F17.200 Nicotine dependence, unspecified, uncomplicated; Z79.899 Other long term (current) drug therapy; Z79.4 Long term (current) use of insulin; Z68.41 Body mass index [BMI] 40.0-44.9, adult; Z60.2 Problems related to living alone
CPT/HCPCS: A4606; A4663

== ENCOUNTER 2023-04-25 04:02 | Emergency (ER) | payer OTHER | END 2023-04-25 05:20 | disposition left against medical advice (07) | LOC: ER 04:05 | DX: Z53.21 Procedure and treatment not carried out due to patient leaving prior to being seen by health care provider (principal) ==

== ENCOUNTER 2023-05-07 00:07 | Emergency (ER) | payer OTHER ==
[~2023-05-07] VITALS: Ht 208.3 cm; Wt 181.4 kg
[2023-05-07] MEDS ORDERED: IV NORMAL SALINE 1000 ML BAG IV ONE (00:45)
[2023-05-07 01:23] LABS: BASOPHILS # (AUTO) 0.1 K/UL (0.0-0.2); EOSINOPHILS # (AUTO) 0.2 K/uL (0.0-0.7); EOSINOPHILS % (AUTO) 2.1 % (0.0-7.0); HEMATOCRIT 40.8 % (36.7-47.1); LYMPHOCYTES # (AUTO) 2.3 K/uL (0.8-4.8); LYMPHOCYTES % (AUTO) 31.3 % (20.5-51.5); MEAN CORPUSCULAR HEMOGLOBIN 25.5 uug (23.8-33.4); MEAN CORPUSCULAR HGB CONC 32 g/dL (32.5-36.3); MEAN CORPUSCULAR VOLUME 79.7 fL (73.0-96.2); MONOCYTES # (AUTO) 0.7 K/uL (0.1-1.30); MONOCYTES % (AUTO) 10.3 % (0.0-11.0); NEUTROPHILS % (AUTO) 55.3 % (38.5-71.5); PLATELET COUNT (AUTO) 190 K/uL (152-348); RED BLOOD CELL COUNT(AUTO) 5.12 MIL/uL (4.06-5.63); RED CELL DISTRIBUTION WIDTH 15.6 % (12.1-16.2); WHITE BLOOD COUNT (AUTO) 7.3 K/uL (3.6-10.2)
[2023-05-07 01:30] LABS: DIFFERENTIAL COMMENT 1
[2023-05-07 01:43] LABS: CALCIUM 8.3 mg/dL (8.5-10.1); POTASSIUM 3.7 mmol/L (3.5-5.1)
[2023-05-07] MEDS ORDERED: INSU3INS6 SQ (02:05)
[2023-05-07] MEDS ORDERED: LISI-782 PO (02:05)
[2023-05-07 03:19] VITALS: BP 139/87; TEMP 98.3; O2SAT 98
== END 2023-05-07 03:15 | disposition home or self-care (01) ==
LOC: ER 00:09
DX: R42 Dizziness and giddiness (principal); I10 Essential (primary) hypertension; E11.9 Type 2 diabetes mellitus without complications; F17.210 Nicotine dependence, cigarettes, uncomplicated; Z79.4 Long term (current) use of insulin; Z79.899 Other long term (current) drug therapy; Z79.2 Long term (current) use of antibiotics
CPT/HCPCS: 99284; 96360; 80048; 85025; 36415; 93005; J7040; A4606; A4663

== ENCOUNTER 2023-05-09 22:42 | Emergency (ER) | payer OTHER ==
[~2023-05-09] VITALS: Ht 208.3 cm; Wt 181.4 kg
[2023-05-10 00:44] LABS: EOSINOPHILS # (AUTO) 0.3 K/uL (0.0-0.7); EOSINOPHILS % (AUTO) 3.5 % (0.0-7.0); HEMATOCRIT 40.2 % (36.7-47.1); HEMOGLOBIN 12.4 g/dL (12.5-16.3); LYMPHOCYTES # (AUTO) 2.1 K/uL (0.8-4.8); MEAN CORPUSCULAR HEMOGLOBIN 25.1 uug (23.8-33.4); MEAN CORPUSCULAR HGB CONC 31 g/dL (32.5-36.3); MEAN CORPUSCULAR VOLUME 81.1 fL (73.0-96.2); MONOCYTES # (AUTO) 0.7 K/uL (0.1-1.30); MONOCYTES % (AUTO) 8.6 % (0.0-11.0); NEUTROPHILS # (AUTO) 5.2 K/uL (1.8-8.9); NEUTROPHILS % (AUTO) 62.9 % (38.5-71.5); PLATELET COUNT (AUTO) 227 K/uL (152-348); RED BLOOD CELL COUNT(AUTO) 4.96 MIL/uL (4.06-5.63); WHITE BLOOD COUNT (AUTO) 8.2 K/uL (3.6-10.2)
[2023-05-10 00:48] LABS: DIFFERENTIAL COMMENT 1
[2023-05-10] MEDS ORDERED: INSULIN REGULAR, HUMAN 300 UNIT/3 ML VIAL SQ ONE (01:00)
[2023-05-10 01:02] LABS: ALANINE AMINOTRANSFERASE 63 U/L (16-63); ALBUMIN 3.7 g/dL (3.4-5.0); ALKALINE PHOSPHATASE 124 U/L (50-136); ASPARTATE AMINOTRANSFERASE 19 U/L (15-37); BILIRUBIN,DIRECT 0.1 mg/dL (0.0-0.2); BILIRUBIN,TOTAL 0.2 mg/dL (0.2-1.0); CARBON DIOXIDE 24 mmol/L (21-32); CHLORIDE 99 mmol/L (98-107); CREATININE 1.1 mg/dL (0.6-1.3); LIPASE 57 U/L (16-77); POTASSIUM 3.7 mmol/L (3.5-5.1); SODIUM SERUM 133 mmol/L (136-145); TOTAL PROTEIN, SERUM 7.4 g/dL (6.4-8.2); UREA NITROGEN, BLOOD 22 mg/dL (7-18)
[2023-05-10 01:12] LABS: GLUCOSE 490 mg/dL (74-106)
[2023-05-10] MEDS ORDERED: INSULIN REGULAR, HUMAN 300 UNIT/3 ML VIAL ONE (01:18)
[2023-05-10 03:35] VITALS: BP 128/76; O2SAT 98
== END 2023-05-10 03:36 | disposition home or self-care (01) ==
LOC: ER 22:45
DX: E11.65 Type 2 diabetes mellitus with hyperglycemia (principal); R07.89 Other chest pain; Z87.891 Personal history of nicotine dependence; Z79.4 Long term (current) use of insulin; Z79.899 Other long term (current) drug therapy
CPT/HCPCS: 99285; 71045; 80076; 80048; 82009; 82962 ×2; 83690; 85025; 84484; 36415; 93005; 96372; J1815; A4606; A4663

== ENCOUNTER 2023-05-19 21:16 | Emergency (ER) | payer OTHER ==
[~2023-05-19] VITALS: Ht 193 cm; Wt 136.1 kg
[2023-05-19 23:22] LABS: BASOPHILS % (AUTO) 0.6 % (0.0-2.0); EOSINOPHILS # (AUTO) 0.1 K/uL (0.0-0.7); HEMATOCRIT 40.1 % (36.7-47.1); HEMOGLOBIN 12.7 g/dL (12.5-16.3); LYMPHOCYTES # (AUTO) 1.7 K/uL (0.8-4.8); LYMPHOCYTES % (AUTO) 33.3 % (20.5-51.5); MEAN CORPUSCULAR HEMOGLOBIN 25.3 uug (23.8-33.4); MEAN CORPUSCULAR HGB CONC 32 g/dL (32.5-36.3); MEAN CORPUSCULAR VOLUME 79.8 fL (73.0-96.2); MONOCYTES # (AUTO) 0.7 K/uL (0.1-1.30); MONOCYTES % (AUTO) 14.2 % (0.0-11.0); NEUTROPHILS # (AUTO) 2.6 K/uL (1.8-8.9); NEUTROPHILS % (AUTO) 49.9 % (38.5-71.5); PLATELET COUNT (AUTO) 179 K/uL (152-348); RED BLOOD CELL COUNT(AUTO) 5.02 MIL/uL (4.06-5.63); RED CELL DISTRIBUTION WIDTH 15.7 % (12.1-16.2); WHITE BLOOD COUNT (AUTO) 5.2 K/uL (3.6-10.2)
[2023-05-19 23:29] LABS: DIFFERENTIAL COMMENT 1
[2023-05-19 23:38] LABS: CALCIUM 8.7 mg/dL (8.5-10.1); CREATININE 1.1 mg/dL (0.6-1.3); POTASSIUM 3.5 mmol/L (3.5-5.1)
[2023-05-20 01:58] VITALS: BP 150/95; TEMP 98.5; O2SAT 100
== END 2023-05-20 01:58 | disposition home or self-care (01) ==
LOC: ER 21:17
DX: R05.9 Cough, unspecified (principal); E11.9 Type 2 diabetes mellitus without complications; E66.01 Morbid (severe) obesity due to excess calories; F17.200 Nicotine dependence, unspecified, uncomplicated; Z79.899 Other long term (current) drug therapy; Z68.36 Body mass index [BMI] 36.0-36.9, adult; Z20.822 Contact with and (suspected) exposure to COVID-19; Z79.84 Long term (current) use of oral hypoglycemic drugs; Z60.2 Problems related to living alone
CPT/HCPCS: 36415; 85025; A4606; A4663

== ENCOUNTER 2023-05-21 02:16 | Emergency (ER) | payer OTHER ==
[~2023-05-21] VITALS: Ht 203.2 cm; Wt 181.4 kg
[2023-05-21 05:51] VITALS: BP 130/70; O2SAT 98
== END 2023-05-21 05:51 | disposition home or self-care (01) ==
LOC: ER 02:32
DX: E11.65 Type 2 diabetes mellitus with hyperglycemia (principal); E66.01 Morbid (severe) obesity due to excess calories; F17.200 Nicotine dependence, unspecified, uncomplicated; Z68.41 Body mass index [BMI] 40.0-44.9, adult; Z79.899 Other long term (current) drug therapy; Z79.4 Long term (current) use of insulin; Z60.2 Problems related to living alone
CPT/HCPCS: A4606; A4663

== ENCOUNTER 2023-05-24 01:45 | Emergency (ER) | payer OTHER ==
[~2023-05-24] VITALS: Ht 198.1 cm; Wt 181.4 kg
[2023-05-24 02:18] VITALS: O2SAT 98
== END 2023-05-24 03:10 | disposition home or self-care (01) ==
LOC: ER 01:56
DX: E11.65 Type 2 diabetes mellitus with hyperglycemia (principal); Z76.5 Malingerer [conscious simulation]; F17.200 Nicotine dependence, unspecified, uncomplicated; Z68.42 Body mass index [BMI] 45.0-49.9, adult; Z79.4 Long term (current) use of insulin; Z79.899 Other long term (current) drug therapy; Z59.00 Homelessness unspecified; Z60.2 Problems related to living alone
CPT/HCPCS: A4606; A4663

== ENCOUNTER 2023-05-27 02:01 | Emergency (ER) | payer OTHER ==
[~2023-05-27] VITALS: Ht 208.3 cm; Wt 181.4 kg
[2023-05-27 02:54] VITALS: O2SAT 99
== END 2023-05-27 05:23 | disposition left against medical advice (07) ==
LOC: ER 02:03
DX: R73.9 Hyperglycemia, unspecified (principal); M79.10 Myalgia, unspecified site; R05.9 Cough, unspecified; Z53.21 Procedure and treatment not carried out due to patient leaving prior to being seen by health care provider
CPT/HCPCS: A4606; A4663

== ENCOUNTER 2023-05-28 01:30 | Emergency (ER) | payer OTHER ==
[~2023-05-28] VITALS: Ht 203.2 cm; Wt 181.4 kg
[2023-05-28 03:25] VITALS: BP 158/95; O2SAT 98
== END 2023-05-28 03:26 | disposition home or self-care (01) ==
LOC: ER 01:35
DX: E11.65 Type 2 diabetes mellitus with hyperglycemia (principal); E66.01 Morbid (severe) obesity due to excess calories; F17.200 Nicotine dependence, unspecified, uncomplicated; Z20.822 Contact with and (suspected) exposure to COVID-19; Z79.899 Other long term (current) drug therapy
CPT/HCPCS: A4606; A4663

== ENCOUNTER 2023-05-29 00:41 | Emergency (ER) | payer OTHER ==
[~2023-05-29] VITALS: Ht 208.3 cm; Wt 181.4 kg
[2023-05-29 00:42] VITALS: O2SAT 99
== END 2023-05-29 07:03 | disposition left against medical advice (07) ==
LOC: ER 00:42
DX: R05.9 Cough, unspecified (principal); E11.9 Type 2 diabetes mellitus without complications; Z87.891 Personal history of nicotine dependence; Z79.4 Long term (current) use of insulin; Z79.899 Other long term (current) drug therapy; Z79.2 Long term (current) use of antibiotics; Z53.21 Procedure and treatment not carried out due to patient leaving prior to being seen by health care provider
CPT/HCPCS: A4606; A4663

== ENCOUNTER 2023-05-30 23:08 | Emergency (ER) | payer OTHER ==
[~2023-05-30] VITALS: Ht 208.3 cm; Wt 181.4 kg
[2023-05-31] MEDS ORDERED: INSU3INS6 SQ (03:12)
[2023-05-31] MEDS ORDERED: ONDA4TAB11 PO (03:13)
[2023-05-31] MEDS ORDERED: ONDANSETRON ODT 4 MG TAB.RAPDIS SL ONE (03:15)
[2023-05-31] MEDS ORDERED: ONDANSETRON ODT 4 MG TAB.RAPDIS ONE (03:18)
[2023-05-31 03:23] VITALS: BP 141/87; O2SAT 100
[2023-06-01] MEDS ORDERED: NAPR-1009 PO (04:05)
[2023-06-01] MEDS ORDERED: PROM118S5 PO (04:05)
== END 2023-05-31 03:49 | disposition home or self-care (01) ==
LOC: ER 23:11
DX: E11.65 Type 2 diabetes mellitus with hyperglycemia (principal); I10 Essential (primary) hypertension; R11.0 Nausea; E66.01 Morbid (severe) obesity due to excess calories; F17.200 Nicotine dependence, unspecified, uncomplicated; Z79.899 Other long term (current) drug therapy; Z60.2 Problems related to living alone
CPT/HCPCS: A4606; A4663; Q0162

== ENCOUNTER 2023-06-01 00:03 | Emergency (ER) | payer OTHER ==
[~2023-06-01] VITALS: Ht 208.3 cm; Wt 181.4 kg
[~2023-06-01 00:03] MED LIST changes: +ONDA4TAB11 PO
[2023-06-01] MEDS ORDERED: PROM118S5 PO (04:05)
[2023-06-01] MEDS ORDERED: NAPR-1009 PO (04:05)
[2023-06-01 04:11] VITALS: BP 148/72; TEMP 97.8; O2SAT 99
== END 2023-06-01 04:12 | disposition home or self-care (01) ==
LOC: ER 00:07
DX: J06.9 Acute upper respiratory infection, unspecified (principal); B97.89 Other viral agents as the cause of diseases classified elsewhere; R05.9 Cough, unspecified; I10 Essential (primary) hypertension; E11.9 Type 2 diabetes mellitus without complications; Z76.5 Malingerer [conscious simulation]; Z59.00 Homelessness unspecified; Z87.891 Personal history of nicotine dependence; Z79.4 Long term (current) use of insulin; Z79.899 Other long term (current) drug therapy
CPT/HCPCS: A4606; A4663

== ENCOUNTER 2023-06-01 23:32 | Emergency (ER) | payer OTHER ==
[~2023-06-01] VITALS: Ht 208.3 cm; Wt 181.4 kg
[~2023-06-01 23:32] MED LIST changes: +NAPR-1009 PO; +PROM118S5 PO
[2023-06-02 04:59] VITALS: BP 148/91; O2SAT 99
[2023-06-03] MEDS ORDERED: ONDA4TAB5 PO (01:07)
[2023-06-03] MEDS ORDERED: DICY20TA11 PO (01:07)
== END 2023-06-02 04:59 | disposition home or self-care (01) ==
LOC: ER 23:42
DX: A05.9 Bacterial foodborne intoxication, unspecified (principal); R12 Heartburn; R11.2 Nausea with vomiting, unspecified; I10 Essential (primary) hypertension; E11.9 Type 2 diabetes mellitus without complications; Z87.891 Personal history of nicotine dependence; Z79.4 Long term (current) use of insulin; Z79.2 Long term (current) use of antibiotics; Z79.899 Other long term (current) drug therapy
CPT/HCPCS: A4606; A4663

== ENCOUNTER 2023-06-03 00:41 | Emergency (ER) | payer OTHER ==
[~2023-06-03] VITALS: Ht 208.3 cm; Wt 181.4 kg
[2023-06-03] MEDS ORDERED: DIPHENOXYLATE HCL/ATROP SULF TABLET PO ONE (01:00)
[2023-06-03] MEDS ORDERED: DICYCLOMINE HCL LIQ 10 MG/5 ML UDC PO ONE (01:00)
[2023-06-03] MEDS ORDERED: ONDANSETRON ODT 4 MG TAB.RAPDIS SL ONE (01:00)
[2023-06-03] MEDS ORDERED: DICYCLOMINE HCL LIQ 10 MG/5 ML UDC ONE (01:04)
[2023-06-03] MEDS ORDERED: DIPHENOXYLATE HCL/ATROP SULF TABLET ONE (01:04)
[2023-06-03] MEDS ORDERED: ONDANSETRON ODT 4 MG TAB.RAPDIS ONE (01:04)
[2023-06-03] MEDS ORDERED: ONDA4TAB5 PO (01:07)
[2023-06-03] MEDS ORDERED: DICY20TA11 PO (01:07)
[2023-06-03 01:36] VITALS: BP 150/96; TEMP 99; O2SAT 100
== END 2023-06-03 01:37 | disposition home or self-care (01) ==
LOC: ER 00:45
DX: R10.84 Generalized abdominal pain (principal); R19.7 Diarrhea, unspecified; E11.65 Type 2 diabetes mellitus with hyperglycemia; Z87.891 Personal history of nicotine dependence; Z79.4 Long term (current) use of insulin; Z79.899 Other long term (current) drug therapy
CPT/HCPCS: A4606; A4663; Q0162

== ENCOUNTER 2023-06-09 03:31 | Emergency (ER) | payer OTHER ==
[~2023-06-09] VITALS: Ht 208.3 cm; Wt 181.4 kg
[2023-06-09 03:43] VITALS: O2SAT 97
== END 2023-06-09 05:00 | disposition left against medical advice (07) ==
LOC: ER 03:33
DX: E11.65 Type 2 diabetes mellitus with hyperglycemia (principal); Z76.0 Encounter for issue of repeat prescription; Z53.21 Procedure and treatment not carried out due to patient leaving prior to being seen by health care provider
CPT/HCPCS: A4606; A4663

== ENCOUNTER 2023-06-10 01:14 | Emergency (ER) | payer OTHER ==
[~2023-06-10] VITALS: Ht 208.3 cm; Wt 181.4 kg
[2023-06-10 01:41] VITALS: O2SAT 99
[2023-06-10 02:53] LABS: CALCIUM 8.4 mg/dL (8.5-10.1); CARBON DIOXIDE 26 mmol/L (21-32); CHLORIDE 102 mmol/L (98-107); GLUCOSE 318 mg/dL (74-106); POTASSIUM 3.6 mmol/L (3.5-5.1); SODIUM SERUM 137 mmol/L (136-145); UREA NITROGEN, BLOOD 16 mg/dL (7-18)
[2023-06-10 02:57] LABS: ACETONE, SERUM TRACE (NEGATIVE)
== END 2023-06-10 03:15 | disposition home or self-care (01) ==
LOC: ER 01:16
DX: E11.65 Type 2 diabetes mellitus with hyperglycemia (principal); E66.01 Morbid (severe) obesity due to excess calories; Z79.899 Other long term (current) drug therapy; Z79.4 Long term (current) use of insulin
CPT/HCPCS: 36415; A4606; A4663

== ENCOUNTER 2023-06-12 01:52 | Emergency (ER) | payer OTHER ==
[~2023-06-12] VITALS: Ht 208.3 cm; Wt 181.4 kg
[2023-06-12] MEDS ORDERED: IV NS 1000 ML 1,000 ML IV ONE (02:30)
[2023-06-12 03:46] LABS: BASOPHILS # (AUTO) 0.1 K/UL (0.0-0.2); BASOPHILS % (AUTO) 0.9 % (0.0-2.0); EOSINOPHILS # (AUTO) 0.2 K/uL (0.0-0.7); HEMATOCRIT 41.2 % (36.7-47.1); HEMOGLOBIN 13.5 g/dL (12.5-16.3); LYMPHOCYTES # (AUTO) 2.1 K/uL (0.8-4.8); LYMPHOCYTES % (AUTO) 26.6 % (20.5-51.5); MEAN CORPUSCULAR HGB CONC 33 g/dL (32.5-36.3); MEAN CORPUSCULAR VOLUME 79.3 fL (73.0-96.2); MONOCYTES # (AUTO) 0.8 K/uL (0.1-1.30); MONOCYTES % (AUTO) 9.8 % (0.0-11.0); NEUTROPHILS # (AUTO) 4.8 K/uL (1.8-8.9); NEUTROPHILS % (AUTO) 59.7 % (38.5-71.5); PLATELET COUNT (AUTO) 209 K/uL (152-348); RED BLOOD CELL COUNT(AUTO) 5.19 MIL/uL (4.06-5.63); RED CELL DISTRIBUTION WIDTH 15.7 % (12.1-16.2)
[2023-06-12 03:47] LABS: *BILIRUBIN,URIN NEGATIVE (NEGATIVE); *BLOOD, URINE NEGATIVE (NEGATIVE); *CLARITY,URINE CLEAR (CLEAR); *COLOR,URINE YELLOW (YELLOW); *KETONES,URINE NEGATIVE (NEGATIVE); *PROTEIN,URINE TRACE (NEGATIVE); *UROBILINOGEN,URINE 0.2 E.U./dl (NORMAL); DIFFERENTIAL COMMENT 1; LEUKOCYTE ESTERASE ,URINE NEGATIVE (NEGATIVE); NITRITE, URINE NEGATIVE (NEGATIVE); PH,URINE 5.5 (5.0-8.0)
[2023-06-12 04:12] LABS: ETHANOL < 3 MG/DL (0-10)
[2023-06-12 04:13] LABS: CALCIUM 8.6 mg/dL (8.5-10.1); CARBON DIOXIDE 26 mmol/L (21-32); CHLORIDE 103 mmol/L (98-107); CREATININE 1.1 mg/dL (0.6-1.3); GLUCOSE 256 mg/dL (74-106); SODIUM SERUM 139 mmol/L (136-145); UREA NITROGEN, BLOOD 16 mg/dL (7-18)
[2023-06-12 04:17] LABS: *AMPHETAMINE, URINE NEGATIVE (NEGATIVE); *BARBITURATE, URINE NEGATIVE (NEGATIVE); *BENZODIAZEPINE, URINE NEGATIVE (NEGATIVE); *CANNABINOID, URINE POSITIVE (NEGATIVE); *COCCAINE, URINE NEGATIVE (NEGATIVE); *OPIATE, URINE NEGATIVE (NEGATIVE); *PHENCYCLIDINE SCREEN,URINE NEGATIVE (NEGATIVE)
[2023-06-12 04:18] LABS: UGLUCOSE 2+ (NEGATIVE)
[2023-06-12 04:19] LABS: ALBUMIN 3.7 g/dL (3.4-5.0); ALKALINE PHOSPHATASE 128 U/L (50-136); BILIRUBIN,TOTAL 0.3 mg/dL (0.2-1.0); TOTAL PROTEIN, SERUM 7.4 g/dL (6.4-8.2)
[2023-06-12 04:20] LABS: FENTANYL, URINE NEGATIVE (NEGATIVE)
[2023-06-12 04:30] LABS: ACETONE, SERUM NEGATIVE (NEGATIVE)
[2023-06-12 04:39] LABS: ALANINE AMINOTRANSFERASE 69 U/L (16-63); ASPARTATE AMINOTRANSFERASE 33 U/L (15-37)
[2023-06-12 04:54] VITALS: BP 138/78; O2SAT 98
[2023-06-12 05:08] LABS: BACTERIA,URINE FEW /HPF (NONE SEEN); RBC,URINE 0-3 /HPF (0-3); SQUAMOUS EPITHELIAL CELL,UR FEW /HPF (NONE SEEN); WBC,URINE NONE SEEN /HPF (0-3)
[2023-06-12 05:09] LABS: URINE AMORPHOUS URATE MODERATE /HPF
[2023-06-18] MEDS ORDERED: INSU3INS6 SQ (04:23)
[2023-06-18] MEDS ORDERED: ONDA4TAB11 PO (04:23)
[2023-06-26] MEDS ORDERED: HYDR-3980 PO (01:11)
== END 2023-06-12 04:55 | disposition home or self-care (01) ==
LOC: ER 01:53
DX: E11.65 Type 2 diabetes mellitus with hyperglycemia (principal); E66.01 Morbid (severe) obesity due to excess calories; Z68.41 Body mass index [BMI] 40.0-44.9, adult; F17.200 Nicotine dependence, unspecified, uncomplicated; Z79.4 Long term (current) use of insulin; Z79.899 Other long term (current) drug therapy; Z60.2 Problems related to living alone
CPT/HCPCS: 80053; 81001; 82009; 85025; 36415; 99283; 96360; 80320; 80307; J7040; A4606; A4663; G0480

== ENCOUNTER 2023-06-13 02:15 | Emergency (ER) | payer OTHER ==
[~2023-06-13] VITALS: Ht 208.3 cm; Wt 181.4 kg
[2023-06-13] MEDS ORDERED: IV NORMAL SALINE 500 ML BAG IV ONE (03:00)
[2023-06-13] MEDS ORDERED: ONDANSETRON 4 MG/2 ML VIAL IV ONE (03:00)
[2023-06-13] MEDS ORDERED: ONDANSETRON ODT 4 MG TAB.RAPDIS SL ONE (03:00)
[2023-06-13] MEDS ORDERED: ONDANSETRON 4 MG/2 ML VIAL ONE (03:15)
[2023-06-13 03:19] LABS: BASOPHILS # (AUTO) 0.1 K/UL (0.0-0.2); BASOPHILS % (AUTO) 1.1 % (0.0-2.0); EOSINOPHILS # (AUTO) 0.2 K/uL (0.0-0.7); EOSINOPHILS % (AUTO) 2.1 % (0.0-7.0); HEMOGLOBIN 13.3 g/dL (12.5-16.3); LYMPHOCYTES # (AUTO) 2.1 K/uL (0.8-4.8); LYMPHOCYTES % (AUTO) 28.5 % (20.5-51.5); MEAN CORPUSCULAR HEMOGLOBIN 25.5 uug (23.8-33.4); MEAN CORPUSCULAR HGB CONC 32 g/dL (32.5-36.3); MEAN CORPUSCULAR VOLUME 78.8 fL (73.0-96.2); MONOCYTES # (AUTO) 0.8 K/uL (0.1-1.30); MONOCYTES % (AUTO) 11.4 % (0.0-11.0); NEUTROPHILS # (AUTO) 4.3 K/uL (1.8-8.9); NEUTROPHILS % (AUTO) 56.9 % (38.5-71.5); PLATELET COUNT (AUTO) 201 K/uL (152-348); RED BLOOD CELL COUNT(AUTO) 5.21 MIL/uL (4.06-5.63); RED CELL DISTRIBUTION WIDTH 15.7 % (12.1-16.2); WHITE BLOOD COUNT (AUTO) 7.5 K/uL (3.6-10.2)
[2023-06-13 03:27] LABS: DIFFERENTIAL COMMENT 1
[2023-06-13 03:30] LABS: CALCIUM 9.3 mg/dL (8.5-10.1); CREATININE 1.1 mg/dL (0.6-1.3); POTASSIUM 4.1 mmol/L (3.5-5.1)
[2023-06-13 03:41] LABS: ALBUMIN 4.1 g/dL (3.4-5.0); BILIRUBIN,TOTAL 0.4 mg/dL (0.2-1.0); MAGNESIUM 2.1 mg/dL (1.8-2.4); TOTAL PROTEIN, SERUM 8.2 g/dL (6.4-8.2)
[2023-06-13] MEDS ORDERED: HUM INSULIN NPH/REG INSULIN HM 70/30 1000 UNITS/10 ML VIAL SQ STA ×2 (03:49→03:52)
[2023-06-13] MEDS ORDERED: HUM INSULIN NPH/REG INSULIN HM 70/30 1000 UNITS/10 ML VIAL SQ ONE (04:01)
[2023-06-13 04:43] VITALS: BP 132/86; TEMP 97.9; O2SAT 97
[2023-06-13 05:06] LABS: *BILIRUBIN,URIN NEGATIVE (NEGATIVE); *BLOOD, URINE NEGATIVE (NEGATIVE); *CLARITY,URINE CLEAR (CLEAR); *COLOR,URINE YELLOW (YELLOW); *KETONES,URINE NEGATIVE (NEGATIVE); *PROTEIN,URINE NEGATIVE (NEGATIVE); *UROBILINOGEN,URINE 0.2 E.U./dl (NORMAL); LEUKOCYTE ESTERASE ,URINE NEGATIVE (NEGATIVE); NITRITE, URINE NEGATIVE (NEGATIVE); PH,URINE 5.5 (5.0-8.0)
[2023-06-13 05:27] LABS: UGLUCOSE 2+ (NEGATIVE)
[2023-06-13 07:38] LABS: BACTERIA,URINE FEW /HPF (NONE SEEN); SQUAMOUS EPITHELIAL CELL,UR FEW /HPF (NONE SEEN)
== END 2023-06-13 04:52 | disposition home or self-care (01) ==
LOC: ER 02:17
DX: E11.65 Type 2 diabetes mellitus with hyperglycemia (principal); R10.9 Unspecified abdominal pain; E66.01 Morbid (severe) obesity due to excess calories; F17.200 Nicotine dependence, unspecified, uncomplicated; Z79.899 Other long term (current) drug therapy; Z79.4 Long term (current) use of insulin; Z68.41 Body mass index [BMI] 40.0-44.9, adult; Z60.2 Problems related to living alone
CPT/HCPCS: 99284; 96374; 96361; 80053; 81001; 82962; 83735; 85025; 36415; 96372; 87086; J1815; J2405; J7040 ×2; 83930; A4606; A4663

== ENCOUNTER 2023-06-15 01:34 | Emergency (ER) | payer OTHER ==
[~2023-06-15] VITALS: Ht 208.3 cm; Wt 181.4 kg
[2023-06-15] MEDS ORDERED: HYDROCODONE/APAP 10-325 MG TABLET PO ONE (02:00)
[2023-06-15] MEDS ORDERED: HYDROCODONE/APAP 10-325 MG TABLET ONE (02:06)
[2023-06-15] MEDS ORDERED: HYDR-3980 PO (02:11)
[2023-06-15] MEDS ORDERED: ONDA4TAB5 PO (02:11)
[2023-06-15 02:34] VITALS: BP 136/86; TEMP 97.8; O2SAT 100
[2023-06-15 02:37] LABS: CARBON DIOXIDE 25 mmol/L (21-32); CHLORIDE 103 mmol/L (98-107); GLUCOSE 281 mg/dL (74-106); SODIUM SERUM 139 mmol/L (136-145); UREA NITROGEN, BLOOD 15 mg/dL (7-18)
[2023-06-15 02:42] LABS: ACETONE, SERUM TRACE (NEGATIVE); CALCIUM 8.2 mg/dL (8.5-10.1)
== END 2023-06-15 02:59 | disposition home or self-care (01) ==
LOC: ER 01:38
DX: S62.101A Fracture of unspecified carpal bone, right wrist, initial encounter for closed fracture (principal); E11.65 Type 2 diabetes mellitus with hyperglycemia; E66.01 Morbid (severe) obesity due to excess calories; F17.200 Nicotine dependence, unspecified, uncomplicated; Z79.899 Other long term (current) drug therapy; W18.39XA Other fall on same level, initial encounter; Y93.89 Activity, other specified; Y92.89 Other specified places as the place of occurrence of the external cause; Y99.8 Other external cause status
CPT/HCPCS: 36415; 73110; A4606; A4663

== ENCOUNTER 2023-06-16 01:22 | Emergency (ER) | payer OTHER ==
[~2023-06-16] VITALS: Ht 208.3 cm; Wt 181.4 kg
[~2023-06-16 01:22] MED LIST changes: +HYDR-3980 PO
[2023-06-16 01:28] VITALS: O2SAT 99
[2023-06-16] MEDS ORDERED: IV NORMAL SALINE 1000 ML BAG IV ONE (02:00)
[2023-06-16 02:15] LABS: *BILIRUBIN,URIN NEGATIVE (NEGATIVE); *BLOOD, URINE NEGATIVE (NEGATIVE); *CLARITY,URINE CLEAR (CLEAR); *COLOR,URINE YELLOW (YELLOW); *KETONES,URINE NEGATIVE (NEGATIVE); *PROTEIN,URINE NEGATIVE (NEGATIVE); *UROBILINOGEN,URINE 0.2 E.U./dl (NORMAL); BASOPHILS # (AUTO) 0.1 K/UL (0.0-0.2); EOSINOPHILS # (AUTO) 0.2 K/uL (0.0-0.7); EOSINOPHILS % (AUTO) 2.5 % (0.0-7.0); HEMATOCRIT 38.9 % (36.7-47.1); HEMOGLOBIN 12.8 g/dL (12.5-16.3); LEUKOCYTE ESTERASE ,URINE NEGATIVE (NEGATIVE); LYMPHOCYTES # (AUTO) 2.6 K/uL (0.8-4.8); LYMPHOCYTES % (AUTO) 31.7 % (20.5-51.5); MEAN CORPUSCULAR HEMOGLOBIN 25.8 uug (23.8-33.4); MEAN CORPUSCULAR HGB CONC 33 g/dL (32.5-36.3); MEAN CORPUSCULAR VOLUME 78.6 fL (73.0-96.2); MONOCYTES # (AUTO) 0.8 K/uL (0.1-1.30); MONOCYTES % (AUTO) 9.6 % (0.0-11.0); NEUTROPHILS # (AUTO) 4.6 K/uL (1.8-8.9); NEUTROPHILS % (AUTO) 55.2 % (38.5-71.5); NITRITE, URINE NEGATIVE (NEGATIVE); PH,URINE 5.5 (5.0-8.0); PLATELET COUNT (AUTO) 196 K/uL (152-348); RED BLOOD CELL COUNT(AUTO) 4.95 MIL/uL (4.06-5.63); RED CELL DISTRIBUTION WIDTH 15.5 % (12.1-16.2); WHITE BLOOD COUNT (AUTO) 8.3 K/uL (3.6-10.2)
[2023-06-16 02:22] LABS: DIFFERENTIAL COMMENT 1
[2023-06-16 02:25] LABS: LIPASE 47 U/L (16-77)
[2023-06-16 02:32] LABS: UGLUCOSE 3+ (NEGATIVE)
[2023-06-16 02:41] LABS: CALCIUM 8.5 mg/dL (8.5-10.1); CREATININE 1.1 mg/dL (0.6-1.3); POTASSIUM 3.8 mmol/L (3.5-5.1)
[2023-06-16 02:48] LABS: ACETONE, SERUM TRACE (NEGATIVE)
[2023-06-18] MEDS ORDERED: ONDA4TAB11 PO (04:23)
[2023-06-18] MEDS ORDERED: INSU3INS6 SQ (04:23)
== END 2023-06-16 03:45 | disposition home or self-care (01) ==
LOC: ER 01:24
DX: R19.7 Diarrhea, unspecified (principal); E11.9 Type 2 diabetes mellitus without complications; E66.01 Morbid (severe) obesity due to excess calories; F17.200 Nicotine dependence, unspecified, uncomplicated; Z79.899 Other long term (current) drug therapy; Z79.4 Long term (current) use of insulin; Z68.41 Body mass index [BMI] 40.0-44.9, adult
CPT/HCPCS: 99283; 96360; 80048; 81003; 82009; 83690; 85025; 36415; J7040; A4606; A4663

== ENCOUNTER 2023-06-17 03:44 | Emergency (ER) | payer OTHER ==
[2023-06-18] MEDS ORDERED: INSU3INS6 SQ (04:23)
[2023-06-18] MEDS ORDERED: ONDA4TAB11 PO (04:23)
== END 2023-06-17 06:28 | disposition left against medical advice (07) ==
LOC: ER 03:46
DX: R52 Pain, unspecified (principal); Z53.21 Procedure and treatment not carried out due to patient leaving prior to being seen by health care provider

== ENCOUNTER 2023-06-21 02:51 | Emergency (ER) | payer OTHER ==
[2023-06-26] MEDS ORDERED: HYDR-3980 PO (01:11)
== END 2023-06-21 05:27 | disposition left against medical advice (07) ==
LOC: ER 02:56
DX: R73.9 Hyperglycemia, unspecified (principal); Z53.21 Procedure and treatment not carried out due to patient leaving prior to being seen by health care provider

== ENCOUNTER 2023-06-22 03:43 | Emergency (ER) | payer OTHER ==
[2023-06-26] MEDS ORDERED: HYDR-3980 PO (01:11)
== END 2023-06-22 05:12 | disposition left against medical advice (07) ==
LOC: ER 04:01
DX: R73.9 Hyperglycemia, unspecified (principal); Z53.21 Procedure and treatment not carried out due to patient leaving prior to being seen by health care provider

== ENCOUNTER 2023-06-22 22:58 | Emergency (ER) | payer OTHER ==
[~2023-06-22] VITALS: Ht 203.2 cm; Wt 181.4 kg
[2023-06-23 02:40] LABS: BASOPHILS # (AUTO) 0.1 K/UL (0.0-0.2); DIFFERENTIAL COMMENT 1; EOSINOPHILS # (AUTO) 0.2 K/uL (0.0-0.7); EOSINOPHILS % (AUTO) 2.5 % (0.0-7.0); HEMATOCRIT 39.4 % (36.7-47.1); HEMOGLOBIN 12.8 g/dL (12.5-16.3); LYMPHOCYTES # (AUTO) 2.4 K/uL (0.8-4.8); LYMPHOCYTES % (AUTO) 28.2 % (20.5-51.5); MEAN CORPUSCULAR HEMOGLOBIN 25.6 uug (23.8-33.4); MEAN CORPUSCULAR HGB CONC 33 g/dL (32.5-36.3); MEAN CORPUSCULAR VOLUME 78.8 fL (73.0-96.2); MONOCYTES # (AUTO) 0.8 K/uL (0.1-1.30); MONOCYTES % (AUTO) 9.2 % (0.0-11.0); NEUTROPHILS # (AUTO) 4.9 K/uL (1.8-8.9); NEUTROPHILS % (AUTO) 59.1 % (38.5-71.5); PLATELET COUNT (AUTO) 190 K/uL (152-348); RED BLOOD CELL COUNT(AUTO) 4.99 MIL/uL (4.06-5.63); RED CELL DISTRIBUTION WIDTH 15.7 % (12.1-16.2); WHITE BLOOD COUNT (AUTO) 8.4 K/uL (3.6-10.2)
[2023-06-23 02:48] LABS: CALCIUM 8.7 mg/dL (8.5-10.1); CARBON DIOXIDE 26 mmol/L (21-32); CHLORIDE 103 mmol/L (98-107); GLUCOSE 295 mg/dL (74-106); POTASSIUM 3.7 mmol/L (3.5-5.1); SODIUM SERUM 138 mmol/L (136-145); UREA NITROGEN, BLOOD 17 mg/dL (7-18)
[2023-06-23 02:54] LABS: ALANINE AMINOTRANSFERASE 55 U/L (16-63); ALBUMIN 3.4 g/dL (3.4-5.0); ALKALINE PHOSPHATASE 133 U/L (50-136); ASPARTATE AMINOTRANSFERASE 17 U/L (15-37); BILIRUBIN,TOTAL 0.3 mg/dL (0.2-1.0)
[2023-06-23 02:55] LABS: ETHANOL < 3 MG/DL (0-10)
[2023-06-23 03:31] LABS: *BILIRUBIN,URIN NEGATIVE (NEGATIVE); *BLOOD, URINE NEGATIVE (NEGATIVE); *CLARITY,URINE CLEAR (CLEAR); *COLOR,URINE YELLOW (YELLOW); *KETONES,URINE NEGATIVE (NEGATIVE); *PROTEIN,URINE NEGATIVE (NEGATIVE); *UROBILINOGEN,URINE 0.2 E.U./dl (NORMAL); LEUKOCYTE ESTERASE ,URINE NEGATIVE (NEGATIVE); NITRITE, URINE NEGATIVE (NEGATIVE); PH,URINE 5.5 (5.0-8.0)
[2023-06-23 03:33] LABS: UGLUCOSE 3+ (NEGATIVE)
[2023-06-23 03:46] LABS: *AMPHETAMINE, URINE NEGATIVE (NEGATIVE); *BARBITURATE, URINE NEGATIVE (NEGATIVE); *BENZODIAZEPINE, URINE NEGATIVE (NEGATIVE); *CANNABINOID, URINE POSITIVE (NEGATIVE); *COCCAINE, URINE NEGATIVE (NEGATIVE); *OPIATE, URINE NEGATIVE (NEGATIVE); *PHENCYCLIDINE SCREEN,URINE NEGATIVE (NEGATIVE)
[2023-06-23 03:51] LABS: FENTANYL, URINE NEGATIVE (NEGATIVE)
[2023-06-23 06:23] VITALS: BP 158/90; TEMP 98.7; O2SAT 97
[2023-06-26] MEDS ORDERED: HYDR-3980 PO (01:11)
== END 2023-06-23 06:27 | disposition home or self-care (01) ==
LOC: ER 23:01
DX: E11.65 Type 2 diabetes mellitus with hyperglycemia (principal); E66.01 Morbid (severe) obesity due to excess calories; F17.200 Nicotine dependence, unspecified, uncomplicated; Z79.4 Long term (current) use of insulin; Z79.899 Other long term (current) drug therapy; Z68.41 Body mass index [BMI] 40.0-44.9, adult; Z60.2 Problems related to living alone
CPT/HCPCS: 36415; 85025; A4606; A4663; G0480

== ENCOUNTER 2023-06-23 22:42 | Emergency (ER) | payer OTHER ==
[~2023-06-23] VITALS: Ht 203.2 cm; Wt 181.4 kg
[2023-06-24 00:05] LABS: CALCIUM 8.8 mg/dL (8.5-10.1); CARBON DIOXIDE 27 mmol/L (21-32); CHLORIDE 101 mmol/L (98-107); GLUCOSE 395 mg/dL (74-106); POTASSIUM 4.2 mmol/L (3.5-5.1); SODIUM SERUM 135 mmol/L (136-145); UREA NITROGEN, BLOOD 16 mg/dL (7-18)
[2023-06-24 00:22] LABS: ACETONE, SERUM TRACE (NEGATIVE)
[2023-06-24 01:39] VITALS: BP 147/87; O2SAT 96
[2023-06-26] MEDS ORDERED: HYDR-3980 PO (01:11)
== END 2023-06-24 01:39 | disposition home or self-care (01) ==
LOC: ER 22:43
DX: S62.111A Displaced fracture of triquetrum [cuneiform] bone, right wrist, initial encounter for closed fracture (principal); E11.65 Type 2 diabetes mellitus with hyperglycemia; E66.01 Morbid (severe) obesity due to excess calories; F17.200 Nicotine dependence, unspecified, uncomplicated; Z79.4 Long term (current) use of insulin; Z79.899 Other long term (current) drug therapy; W18.39XA Other fall on same level, initial encounter; Y93.89 Activity, other specified; Y92.89 Other specified places as the place of occurrence of the external cause; Y99.8 Other external cause status; Z68.41 Body mass index [BMI] 40.0-44.9, adult
CPT/HCPCS: 36415; 73110; A4606; A4663

== ENCOUNTER 2023-06-24 22:41 | Emergency (ER) | payer OTHER ==
[~2023-06-24] VITALS: Ht 208.3 cm; Wt 181.4 kg
[2023-06-25 05:37] VITALS: BP 150/82; O2SAT 100
[2023-06-26] MEDS ORDERED: HYDR-3980 PO (01:11)
== END 2023-06-25 01:00 | disposition home or self-care (01) ==
LOC: ER 22:43
DX: S62.101A Fracture of unspecified carpal bone, right wrist, initial encounter for closed fracture (principal); E11.65 Type 2 diabetes mellitus with hyperglycemia; E66.01 Morbid (severe) obesity due to excess calories; F17.200 Nicotine dependence, unspecified, uncomplicated; Z79.84 Long term (current) use of oral hypoglycemic drugs; Z79.899 Other long term (current) drug therapy; Z60.2 Problems related to living alone; Z68.41 Body mass index [BMI] 40.0-44.9, adult; X58.XXXA Exposure to other specified factors, initial encounter; Y93.89 Activity, other specified; Y92.89 Other specified places as the place of occurrence of the external cause; Y99.8 Other external cause status
CPT/HCPCS: A4606; A4663

== ENCOUNTER 2023-06-28 03:02 | Emergency (ER) | payer OTHER ==
[~2023-06-28] VITALS: Ht 208.3 cm; Wt 181.4 kg
[2023-06-28 03:47] VITALS: BP 136/84; TEMP 97.7; O2SAT 99
== END 2023-06-28 03:48 | disposition home or self-care (01) ==
LOC: ER 03:13
DX: S62.101A Fracture of unspecified carpal bone, right wrist, initial encounter for closed fracture (principal); E11.65 Type 2 diabetes mellitus with hyperglycemia; E66.01 Morbid (severe) obesity due to excess calories; F17.200 Nicotine dependence, unspecified, uncomplicated; Z79.4 Long term (current) use of insulin; Z79.899 Other long term (current) drug therapy; Z68.41 Body mass index [BMI] 40.0-44.9, adult; W18.39XA Other fall on same level, initial encounter; Y93.89 Activity, other specified; Y92.89 Other specified places as the place of occurrence of the external cause; Y99.8 Other external cause status
CPT/HCPCS: A4606; A4663

== ENCOUNTER 2023-06-29 23:41 | Emergency (ER) | payer OTHER | END 2023-06-30 05:41 | disposition left against medical advice (07) | LOC: ER 23:43 | DX: R73.9 Hyperglycemia, unspecified (principal); Z53.21 Procedure and treatment not carried out due to patient leaving prior to being seen by health care provider ==

== ENCOUNTER 2023-06-30 22:54 | Emergency (ER) | payer OTHER | END 2023-07-01 05:13 | disposition left against medical advice (07) | LOC: ER 22:56 | DX: M79.643 Pain in unspecified hand (principal); Z53.21 Procedure and treatment not carried out due to patient leaving prior to being seen by health care provider ==

== ENCOUNTER 2023-07-01 23:47 | Emergency (ER) | payer OTHER | END 2023-07-02 00:01 | disposition left against medical advice (07) | LOC: ER 23:52 | DX: M79.643 Pain in unspecified hand (principal); Z53.21 Procedure and treatment not carried out due to patient leaving prior to being seen by health care provider ==

== ENCOUNTER 2023-07-04 22:47 | Emergency (ER) | payer OTHER ==
[~2023-07-04] VITALS: Ht 208.3 cm; Wt 181.4 kg
[2023-07-04] MEDS ORDERED: IBUP-1955 PO (23:11)
[2023-07-04 23:16] VITALS: BP 155/76; TEMP 97.8; O2SAT 99
== END 2023-07-04 23:16 | disposition home or self-care (01) ==
LOC: ER 22:48
DX: M25.531 Pain in right wrist (principal); Z91.148 Patient's other noncompliance with medication regimen for other reason; E11.9 Type 2 diabetes mellitus without complications; E66.01 Morbid (severe) obesity due to excess calories; F17.200 Nicotine dependence, unspecified, uncomplicated; Z79.4 Long term (current) use of insulin; Z79.899 Other long term (current) drug therapy; Z59.00 Homelessness unspecified
CPT/HCPCS: A4606; A4663

== ENCOUNTER 2024-03-06 00:29 | Emergency (ER) | payer OTHER ==
[~2024-03-06] VITALS: Ht 208.3 cm; Wt 181.4 kg
[~2024-03-06 00:29] MED LIST changes: +IBUP-1955 PO
[2024-03-06 01:38] LABS: BASOPHILS # (AUTO) 0.1 K/UL (0.0-0.2); BASOPHILS % (AUTO) 0.8 % (0.0-2.0); EOSINOPHILS # (AUTO) 0.3 K/uL (0.0-0.7); EOSINOPHILS % (AUTO) 2.9 % (0.0-7.0); HEMATOCRIT 34.9 % (36.7-47.1); HEMOGLOBIN 11.3 g/dL (12.5-16.3); LYMPHOCYTES # (AUTO) 2.4 K/uL (0.8-4.8); MEAN CORPUSCULAR HEMOGLOBIN 26.4 uug (23.8-33.4); MEAN CORPUSCULAR HGB CONC 32 g/dL (32.5-36.3); MEAN CORPUSCULAR VOLUME 81.6 fL (73.0-96.2); MONOCYTES # (AUTO) 0.9 K/uL (0.1-1.30); MONOCYTES % (AUTO) 9.7 % (0.0-11.0); NEUTROPHILS # (AUTO) 5.8 K/uL (1.8-8.9); NEUTROPHILS % (AUTO) 61.6 % (38.5-71.5); PLATELET COUNT (AUTO) 202 K/uL (152-348); RED BLOOD CELL COUNT(AUTO) 4.27 MIL/uL (4.06-5.63); RED CELL DISTRIBUTION WIDTH 16.3 % (12.1-16.2); WHITE BLOOD COUNT (AUTO) 9.5 K/uL (3.6-10.2)
[2024-03-06 01:43] LABS: ALBUMIN 3.3 g/dL (3.4-5.0); BILIRUBIN,DIRECT 0.1 mg/dL (0.0-0.2); BILIRUBIN,TOTAL 0.4 mg/dL (0.2-1.0); CALCIUM 8.3 mg/dL (8.5-10.1); CREATININE 0.9 mg/dL (0.6-1.3); POTASSIUM 3.2 mmol/L (3.5-5.1); TOTAL PROTEIN, SERUM 6.7 g/dL (6.4-8.2)
[2024-03-06 01:56] LABS: DIFFERENTIAL COMMENT 1
[2024-03-06] MEDS: POTASSIUM CHLORIDE 20 MEQ TAB.PRT.SR PO ONE (02:54)
[2024-03-06 06:57] VITALS: BP 128/76; TEMP 98; O2SAT 98
== END 2024-03-06 06:58 | disposition home or self-care (01) ==
LOC: ER 00:32
DX: E87.6 Hypokalemia (principal); E11.9 Type 2 diabetes mellitus without complications; E66.01 Morbid (severe) obesity due to excess calories; F17.200 Nicotine dependence, unspecified, uncomplicated; Z79.899 Other long term (current) drug therapy; Z79.4 Long term (current) use of insulin; Z79.84 Long term (current) use of oral hypoglycemic drugs; Z68.41 Body mass index [BMI] 40.0-44.9, adult; Z88.7 Allergy status to serum and vaccine
CPT/HCPCS: 36415; 83605; 85025; A4606; A4663

== ENCOUNTER 2024-05-25 02:09 | Emergency (ER) | payer OTHER ==
[~2024-05-25] VITALS: Ht 203.2 cm; Wt 181.4 kg
[2024-05-25] MEDS: IV NS 1000 ML 1,000 ML IV ONE (02:45)
[2024-05-25 03:11] LABS: HEMATOCRIT 41.1 % (36.7-47.1); HEMOGLOBIN 13.3 g/dL (12.5-16.3); MEAN CORPUSCULAR HGB CONC 32 g/dL (32.5-36.3); MEAN CORPUSCULAR VOLUME 80.7 fL (73.0-96.2); PLATELET COUNT (AUTO) 167 K/uL (152-348); RED CELL DISTRIBUTION WIDTH 14.5 % (12.1-16.2); WHITE BLOOD COUNT (AUTO) 7.1 K/uL (3.6-10.2)
[2024-05-25 03:12] LABS: BASOPHILS # (AUTO) 0.1 K/UL (0.0-0.2); BASOPHILS % (AUTO) 0.1 % (0.0-2.0); EOSINOPHILS # (AUTO) 0.1 K/uL (0.0-0.7); EOSINOPHILS % (AUTO) 0.1 % (0.0-7.0); LYMPHOCYTES # (AUTO) 2.2 K/uL (0.8-4.8); LYMPHOCYTES % (AUTO) 31.3 % (20.5-51.5); MONOCYTES # (AUTO) 0.6 K/uL (0.1-1.30); MONOCYTES % (AUTO) 8.7 % (0.0-11.0); NEUTROPHILS # (AUTO) 4.1 K/uL (1.8-8.9)
[2024-05-25 03:23] LABS: *BILIRUBIN,URIN NEGATIVE (NEGATIVE); *BLOOD, URINE NEGATIVE (NEGATIVE); *CLARITY,URINE CLEAR (CLEAR); *COLOR,URINE YELLOW (YELLOW); *KETONES,URINE NEGATIVE (NEGATIVE); *PROTEIN,URINE NEGATIVE (NEGATIVE); *UROBILINOGEN,URINE 0.2 E.U./dl (NORMAL); LEUKOCYTE ESTERASE ,URINE NEGATIVE (NEGATIVE); NITRITE, URINE NEGATIVE (NEGATIVE); PH,URINE 5.5 (5.0-8.0)
[2024-05-25 03:43] LABS: UGLUCOSE 3+ (NEGATIVE)
[2024-05-25 03:57] LABS: RBC,URINE 0-3 /HPF (0-3); WBC,URINE NONE SEEN /HPF (0-3)
[2024-05-25 03:58] LABS: WAXY CASTS,URINE 0-3 /LPF (NONE SEEN)
[2024-05-25 03:59] LABS: ALANINE AMINOTRANSFERASE 46 U/L (16-63); ALBUMIN 3.6 g/dL (3.4-5.0); ALKALINE PHOSPHATASE 156 U/L (50-136); ASPARTATE AMINOTRANSFERASE 22 U/L (15-37); BILIRUBIN,TOTAL 0.5 mg/dL (0.2-1.0); CALCIUM 8.6 mg/dL (8.5-10.1); CARBON DIOXIDE 24 mmol/L (21-32); CHLORIDE 101 mmol/L (98-107); CREATININE 1.1 mg/dL (0.6-1.3); LIPASE 48 U/L (16-77); PHOSPHOROUS 3.6 mg/dL (2.5-4.9); POTASSIUM 3.9 mmol/L (3.5-5.1); SODIUM SERUM 137 mmol/L (136-145); TOTAL PROTEIN, SERUM 7.1 g/dL (6.4-8.2); UREA NITROGEN, BLOOD 13 mg/dL (7-18)
[2024-05-25 04:02] LABS: GLUCOSE 415 mg/dL (74-106)
[2024-05-25] MEDS ORDERED: INSULIN REGULAR, HUMAN 1000 UNIT/10 ML VIAL SQ ONE (04:15)
[2024-05-25] MEDS ORDERED: INSULIN GLARGINE,HUM 300 UNITS/3 ML CARTRIDGE SQ ONE (04:21)
[2024-05-25] MEDS: INSULIN GLARGINE,HUM 300 UNITS/3 ML CARTRIDGE SQ SCH (04:45)
[2024-05-25 06:17] LABS: ACETONE, SERUM NEGATIVE (NEGATIVE)
[2024-05-25 06:25] VITALS: BP 158/94; TEMP 97.7; O2SAT 97
== END 2024-05-25 06:10 | disposition home or self-care (01) ==
LOC: ER 02:21
DX: E11.65 Type 2 diabetes mellitus with hyperglycemia (principal); F17.200 Nicotine dependence, unspecified, uncomplicated; I10 Essential (primary) hypertension; R19.7 Diarrhea, unspecified; R53.1 Weakness; Z76.0 Encounter for issue of repeat prescription; Z79.4 Long term (current) use of insulin; Z79.84 Long term (current) use of oral hypoglycemic drugs; Z79.899 Other long term (current) drug therapy; Z88.7 Allergy status to serum and vaccine; Z60.2 Problems related to living alone
CPT/HCPCS: 99283; 96360; 80053; 81001; 82009; 83690; 83735; 84100; 85025; 36415; 96372; J1815; J7040; A4606; A4663

== ENCOUNTER 2024-05-30 23:35 | Emergency (ER) | payer OTHER | END 2024-05-31 02:40 | disposition left against medical advice (07) | LOC: ER 23:35 | DX: I10 Essential (primary) hypertension (principal); E11.9 Type 2 diabetes mellitus without complications; E66.01 Morbid (severe) obesity due to excess calories; F17.200 Nicotine dependence, unspecified, uncomplicated; Z60.2 Problems related to living alone; Z79.4 Long term (current) use of insulin; Z79.84 Long term (current) use of oral hypoglycemic drugs; Z79.899 Other long term (current) drug therapy; Z88.7 Allergy status to serum and vaccine ==